=== PATIENT | female | born 1940 | race Caucasian/White ===

== ENCOUNTER 2020-09-04 14:55 | Inpatient (IN) | payer MEDICARE, SELFPAY ==
[2020-09-04] VITALS (12 sets, daily range): BP systolic 124–157; BP diastolic 65–94; PULSE 79–106; RESP 12–24; TEMP 36.6–36.7; O2SAT 92–100; BMI 29.6
--- NOTE | ~2020-09-04 | CT_ITS ---
EXAMINATION: CT brain wo con INDICATION: Confusion and weakness COMPARISON: None TECHNIQUE: Standard unenhanced head CT. The dose-length product (DLP) was 681.00 mGy-cm. The mA was a djusted according to patient size. Iterative reconstruction technique was employed. FINDINGS: There is no acute intraparenchymal hemorrhage. No evidence of mass lesion. No evidence of a cute infarction. Encephalomalacia in the left basal ganglia is consistent with prior infarction. Ther e is mild periventricular and subcortical hypodensity probably related to small vessel ischemic disea se. There is mild prominence of the sulci and ventricles related to cerebral atrophy. Intracranial ca lcified cerebral atherosclerosis is noted. There are no extra-axial collections. There is no mass eff ect or midline shift. Changes in the globes are likely from ocular lens surgery. There is mild mucos al thickening of the paranasal sinuses. IMPRESSION: 1. Prior left basal ganglia infarct without acute intracranial abnormality. 2. Age related findings. Reviewed, dictated and finalized at location A. UET COOK
--- NOTE | ~2020-09-04 | XR_ITS ---
XR chest 1V portable DATE: 09/04/2020 16:39 INDICATION: Covid-positive patient. Weakness. TECHNIQUE: Portable AP chest on 09/04/2020 at 1631 hours COMPARISON: None FINDINGS: There are mild patchy infiltrates in the mid and lower lung zones bilaterally. Heart size appears borderline. There is aortic calcification. Pulmonary vascularity appears within no rmal limits. No pleural effusion or pneumothorax. Diffuse osteopenia. IMPRESSION: Mild patchy infiltrate in the bilateral mid and lower lung zones Reviewed, dictated and finalized at location A. TENDER
[2020-09-04 16:42] LABS: Basophils Percent Auto 0.4 % (0.2-1.2); Eosinophils Absolute Auto 0.2 K/mm3 (0-0.3); Eosinophils Percent Auto 1.6 % (0-4.4); Hematocrit 39.3 % (37.0-47.0); Hemoglobin 13.1 g/dL (12.0-15.0); Immature Granulocyte Absolute 0.28 K/mm3 (0.00-0.031); Immature Granulocyte Percent A 2.6 % (0-0.5); Lymphocytes Absolute Auto 2.04 K/mm3 (0.9-3.2); Lymphocytes Percent Auto 18.7 % (18.3-44.2); Mean Corpuscular HGB Conc 33.3 g/dl (32-36); Mean Corpuscular Hemoglobin 30.5 pg (26-34); Mean Corpuscular Volume 91.4 fl (80-100); Monocytes Absolute Auto 1.2 K/mm3 (0.1-0.6); Monocytes Percent Auto 10.8 % (2.6-8.5); Neutrophils Absolute Auto 7.2 K/mm3 (1.3-6.7); Neutrophils Percent Auto 65.9 % (45.5-73.1); Platelet Count Result 434 k/mm3 (150-375); Red Cell Distribution Width 12.6 % (11.5-14.5); White Blood Count 10.9 K/mm3 (4.5-10.0)
--- NOTE | 2020-09-04 16:50 | ECG_ITS ---
Measurements Intervals [place] Rate: 102 P: 39 CT: 153 QRS: -30 QRSD: 101 T: 138 QT: 374 QTc: 488 Interpretive Statements SINUS TACHYCARDIA VENTRICULAR PREMATURE COMPLEX LOW QRS VOLTAGE IN PRECORDIAL LEADS VOLTAGE CRITERIA FOR LVH CONSIDER ANTEROLATERAL INFARCT, AGE INDETERMINATE BORDERLINE ST-T WAVE ABNORMALITY- HIGH LATERAL LEADS BASELINE ARTIFACT- I, II, III, AVR, AVL, AVF, V1-V6 ABNORMAL ECG Electronically Signed On 09-04-2020 18:12:48 PIECER UP by Dennis Cassidy D.O.
[2020-09-04 16:54] LABS: Alanine Aminotransferase 40 U/L (4-35); Albumin Level 3.5 g/dL (3.5-5.1); Alkaline Phosphatase 81 U/L (38-126); Anion Gap 6 mmol/L (8-16); Aspartate Amino Transferase 111 U/L (14-36); Bilirubin,Total 1.1 mg/dL (0.2-1.3); Blood Urea Nitrogen 25 mg/dL (7-17); Calcium 8.5 mg/dL (8.4-10.2); Carbon Dioxide 32 mmol/L (22-30); Chloride 103 mmol/L (98-107); Estimated CRCL calculation 45 ml/min; Estimated Glomerular Filt Rate 60; Glucose 130 mg/dL (65-105); Lactate Dehydrogenase 1182 U/L (313-618); Lipase 159 U/L (23-300); Potassium 3.7 mmol/L (3.4-5.0); Sodium 141 mmol/L (137-145)
--- NOTE | 2020-09-04 16:54 | ED.GENADULT ---
HPI - General Adult General Chief complaint: Unspecified Stated complaint: COVID + NOT FEELING WELL Time Seen by Provider: 09/04/20 15:13 Source: patient Mode of arrival: EMS Limitations: other (poor historian) History of Present Illness HPI narrative: This is a 79 year old female that presents to the ER for coronavirus infection. Patient's family called EMS to have her evaluated. Patient reportedly tested positive earlier this week. Has been evaluated in the ED at another facility a couple of times and sent home. Patient reports she just does not feel well and does not feel like eating. Also reports shortness of breath upon exertion. Denies fever, cough, abdominal pain, vomiting, or dysuria. Related Data Allergies Allergy/AdvReac Type Severity Reaction Status Date / Time No Known Allergies Allergy Unverified 08/23/12 15:01 Review of Systems Review of Systems: Narrative: CONSTITUTIONAL: Denies fever ENT: Denies congestion CARDIOVASCULAR: Denies chest pain, or edema. RESPIRATORY: Reports dyspnea. GASTROINTESTINAL: Denies abdominal pain, nausea, vomiting GENITOURINARY: Denies dysuria NEUROLOGIC: Reports generalized weakness All systems reviewed & are unremarkable except as noted in HPI and below PMFSH Past Medical History Medical History (Updated 09/04/20 @ 19:44 by Larisa Link PA-C) History of CHF (congestive heart failure) History of diabetes mellitus History of hyperlipidemia Exam Narrative: Exam Narrative: GENERAL: Elderly, well-nourished, and in no acute distress. HEAD: Normocephalic, atraumatic. EYES: EOMI. ENT: Nares clear, no rhinorrhea or epistaxis. Mucous membranes moist. Oropharynx without tonsillar hypertrophy exudate or other lesions. Bilateral TMs pearly watson non-bulging NECK: Supple. No adenopathy or masses. CHEST: Clear to auscultation. No respiratory distress. No wheezes rales or rhonchi HEART: Regular rate and rhythm. No murmur heard. Normal peripheral pulses. ABDOMEN: Soft, nontender, nondistended, normal active bowel sounds. EXTREMITIES: Normal range of motion. No edema. SKIN: Warm, dry, no rash. NEURO: No focal deficits. Alert and oriented x3. PSYCH: Normal mood and affect Course Consultations Consultation #1: Spoke with hospitalist about patient and work-up accepts admission Date: 12/11/20 Time: 19:47 Vital Signs Vital signs: Vital Signs Temperature 97.8 F 09/04/20 15:00 Pulse Rate 105 H 09/04/20 15:00 Respiratory Rate 20 09/04/20 15:00 Blood Pressure 157/94 H 09/04/20 15:00 Pulse Oximetry 96 09/04/20 15:00 Temperature 97.8 F 09/04/20 15:00 Pulse Rate 81 09/04/20 18:34 Respiratory Rate 12 09/04/20 18:34 Blood Pressure 124/81 09/04/20 18:34 Pulse Oximetry 95 09/04/20 18:34 Medical Decision Making MDM Narrative Medical decision making narrative: Patient presents to the ER for generalized weakness, recently diagnosed with coronavirus. Oxygen saturation was in the mid to low 90s on room air. Periodically would dip into the high 80s. Patient placed on 2 L nasal cannula with normalization of oxygen saturation. She is afebrile and nontoxic-appearing. Mildly tachycardic upon arrival, this normalized with IV fluids. CBC with mild leukocytosis to 10.9. Metabolic panel with transaminitis. LDH and ferritin are elevated. Lactic acid is mildly elevated to 2.2. UA is without evidence of infection. Chest x-ray shows patchy bilateral infiltrates in the mid and lower lung zones. CT scan of the brain is without acute findings. Patient will be admitted for further observation and treatment. Spoke with hospitalist about patient work-up who accepts admission Vital Signs Vital Signs: Vital Signs Temperature 97.8 F 09/04/20 15:00 Pulse Rate 105 H 09/04/20 15:00 Respiratory Rate 20 09/04/20 15:00 Blood Pressure 157/94 H 09/04/20 15:00 Pulse Oximetry 96 09/04/20 15:00 Temperature 97.8 F 09/04/20 15:00 Pulse Rate 81 09/04/20 18:34 Resp
[2020-09-04 16:56] LABS: Lactic Acid Reflex 2.2 mmol/L (0.7-2.1)
[2020-09-04 16:58] LABS: CRP 1.1 mg/dL (<1.0)
[2020-09-04] MEDS: ONDANSETRON INJ 4 MG/2 ML VIAL IV PUSH (17:02)
[2020-09-04] MEDS: SODIUM CHLORIDE 0.9% IV 1,000 ML 999 ML IV CONT (17:02)
[2020-09-04 17:23] LABS: Add Urine Microscopic? YES; Appearance Urine Clear (Clear); Bilirubin Urine Negative (Negative); Blood Urine Negative (Negative); Color Urine Yellow (Yellow); Glucose Urine UA Negative (Negative); Ketones Urine Negative (Negative); Leukocyte Esterase Ur Negative LEU/UL (Negative); Nitrate Urine Negative (Negative); Protein Urine 2+ mg/dL (Negative); Specific Grav Ur 1.021 (1.001-1.035); Squamous Epithelial Cell Urine Rare /hpf (Few); Urobilinogen Urine Negative mg/dL (<2.0); WBC Urine 0-3 /hpf
[2020-09-04 17:57] LABS: Alveolar/Arterial O2 Gradient 51.9 mmHg; Base Excess ABG -1.6 mEq/l (+/-2.0); Carboxyhemoglobin 1.2 % THb (0-2.0); Fractional Inspired Oxygen 21 %; HCO3 ABG 22.7 mEq/l (22.0-26.0); Methemoglobin ABG 0.3 %THb (0-1.5); Oxygen Content ABG 14.7 %vol (16.0-22.0); Oxygen Saturation ABG 88.5 % (95.0-100.0); Oxyhemoglobin 84.9 % THb (90.0-100.0); PCO2 ABG 36.7 mmHg (35.0-45.0); PO2 ABG 53.9 mmHg (80.0-100.0); PO2 FiO2 Ratio Arterial Blood 2.57 %; Reduced Hemoglobin 13.6 %THb (0-5.0); Total Hemoglobin 12.3 g/dL (12.0-18.0); pH ABG 7.409 (7.350-7.450)
[2020-09-04 17:58] LABS: Device ROOM AIR; Modified Allen's Test Pass; Site Drawn RIGHT RADIAL
--- NOTE | 2020-09-04 18:05 | PC.NURSE ---
Patient placed on 2L oxygen per EDP request
[2020-09-04] MEDS: DEXAMETHASONE SOD PHOS INJ 4 MG/ML VIAL 6 MG IV PUSH (18:18)
[2020-09-04 19:38] LABS: Reflex Lactic Acid Yes or No Add Lactic
[2020-09-04 20:12] LABS: Lactic Acid 1.1 mmol/L (0.7-2.1)
[2020-09-04] MEDS: REMDESIVIR 200 MG/NS 250 ML 200 MG/250 ML BAG 250 MG IVPB (20:18)
--- NOTE | 2020-09-04 22:01 | ADMGEN ---
This patient, Kylah Peña, was admitted to [facility] S[facility] Room 309-01 at 1205. Patient/family oriented to hospital policies and general routines including ID bracelet, bed and alarms, visiting hours, pain management, procedures, bathroom and other care routines, personal items, smoking policy, room service/diet, and visiting hours. Information on how to activate the Rapid Response Team has been discussed. Patient/Family are encouraged to report perceived risks to care and to ask questions if they do not understand what they are told or what they should do.
[2020-09-04 23:04] LABS: Glucose Point of Care 190 (65-105)
[2020-09-05] VITALS (8 sets, daily range): BP systolic 123–150; BP diastolic 58–81; PULSE 70–87; RESP 18; TEMP 36.3–37.3; O2SAT 91–100
[2020-09-05 07:25] LABS: Alanine Aminotransferase 45 U/L (4-35)
--- NOTE | 2020-09-05 07:49 | PC.NURSE ---
Atempted to call number patient gave nurse for daughter and son [phone]. chadian speaking recording answered.
[2020-09-05 08:44] LABS: Glucose Point of Care 180 (65-105)
[2020-09-05 10:37] LABS: Estimated CRCL calculation 55 ml/min; Estimated Glomerular Filt Rate > 60
[2020-09-05] MEDS: DEXAMETHASONE SOD PHOS INJ 4 MG/ML VIAL 6 MG IV PUSH (11:21)
[2020-09-05 12:34] LABS: Glucose Point of Care 156 (65-105)
--- NOTE | 2020-09-05 14:40 | PM.IMHP ---
H&P: HPI History of Present Illness Date/Time: 09/05/20 14:40 Chief complaint: COVID pneumonia, hypoxia Narrative: Kylah Peña is a 79 year old female with a past medical history of heart failure, diabetes and hypertension and a positive COVID-19 test about a week ago who presented emergency room for overall weakness and dyspnea on exertion. Patient states her symptoms started over a week ago and she was tested at [facility] and found to be positive about a week ago. She said the symptoms started as a stomach ache and then moved to body aches as well as dyspnea on exertion. She does not have any shortness of breath at rest. She has also noticed a headache with decreased appetite. She has been weak but has not fallen and usually walks with a walker. She lives with her 2 children at her own home. She says that today her appetite is better than it has been. She is unsure where she got COVID-19 as she lives with her daughter and son who does all the shopping and she has not been out of the house. Her last bowel movement was 2 days ago. She denies fevers, cough, loss of smell or taste, diarrhea, chest pain, vomiting, dysuria or leg swelling. She states that she is aware she has had a stroke in the past and also had an UT with stenting. She does not know why she does not take aspirin daily. Review of Systems Review of Systems: All systems reviewed & are unremarkable except as noted in HPI and below PMFSH Past Medical History Medical History (Updated 09/05/20 @ 14:48 by Beth Bautista PA-C) History of CHF (congestive heart failure) History of diabetes mellitus History of hyperlipidemia Hypertension Surgical History Surgical History (Updated 09/05/20 @ 14:45 by Beth Bautista PA-C) History of heart artery stent Family History Family History Mother Congestive heart failure Father Congestive heart failure Sibling Congestive heart failure Emphysema lung Breast cancer Social History Social History (Updated 09/05/20 @ 14:46 by Beth Bautista PA-C) Social History: Patient has never smoked. She does not drink alcohol or do drugs. She would like to be a full code. If she is unable to make decisions for herself she would like her son, Franco, to make these decisions. Smoking status: Never smoker Alcohol intake: never Substance use: never Spiritual care concerns: Yes (pentacostal) Meds Home Medications and Allergies Home Medications Medication Instructions Recorded Confirmed Type furosemide 40 mg PO DAILY 09/04/20 09/04/20 History glimepiride 4 mg PO BID 09/04/20 09/04/20 History insulin glargine [Lantus Solostar 15 unit SUBCUT HS 09/04/20 09/04/20 History U-100 Insulin] metoprolol tartrate 25 mg PO BID 09/04/20 09/04/20 History nifedipine 30 mg PO BID 09/04/20 09/04/20 History potassium chloride 10 meq PO BID 09/04/20 09/04/20 History quetiapine 25 mg PO HS 09/04/20 09/04/20 History sacubitril-valsartan [Entresto] 1 tablet PO BID 09/04/20 09/04/20 History simvastatin [Zocor] 40 mg PO HS 09/04/20 09/04/20 History Allergies Allergy/AdvReac Type Severity Reaction Status Date / Time No Known Allergies Allergy Verified 09/05/20 05:16 Vital Signs Vital Signs - 24 hr 09/04/20 15:00 09/04/20 16:11 09/04/20 16:27 Temperature 97.8 F Pulse Rate 105 H 106 H 102 H Respiratory Rate 20 24 H Blood Pressure 157/94 H 156/88 H Pulse Oximetry 96 96 09/04/20 18:34 09/04/20 19:00 09/04/20 19:02 Temperature Pulse Rate 81 89 93 Respiratory Rate 12 15 18 Blood Pressure 124/81 140/71 Pulse Oximetry 95 99 100 09/04/20 19:15 09/04/20 19:57 09/04/20 20:21 Temperature Pulse Rate 103 H 85 85 Respiratory Rate 18 17 16 Blood Pressure 150/74 H Pulse Oximetry 92 100 96 09/04/20 20:22 09/04/20 21:00 09/04/20 21:05 Temperature 98.1 F Pulse Rate 87 79 79 Respiratory Rate 18 18 18 Blood Pressure 144/6
[2020-09-05] MEDS: POTASSIUM CHLORIDE 10 MEQ TABLET.ER PO ×2 (14:57→18:01)
[2020-09-05] MEDS: ASPIRIN 81 MG ENTERIC TABLET PO (14:57)
[2020-09-05] MEDS: SACUBITRIL/VALSARTAN 49-51 MG TABLET 1 TABLET PO ×2 (14:57→18:01)
[2020-09-05] MEDS: NIFEdipine 30 MG TAB.ER.24 PO (14:57)
[2020-09-05] MEDS: METOPROLOL TARTRATE 25 MG TABLET PO ×2 (14:57→20:00)
[2020-09-05] MEDS: ENOXAPARIN 40 MG/0.4 ML SYRINGE SUB-Q ×2 (14:57→20:01)
[2020-09-05 17:24] LABS: Glucose Point of Care 295 (65-105)
[2020-09-05] MEDS: QUEtiapine FUMARATE 25 MG TABLET PO (20:00)
[2020-09-05 20:59] LABS: Glucose Point of Care 314 (65-105)
[2020-09-06] VITALS (7 sets, daily range): BP systolic 123–142; BP diastolic 52–66; PULSE 72–82; RESP 16–20; TEMP 36.1–36.7; O2SAT 91–95
[2020-09-06 06:38] LABS: Basophils Percent Auto 0.1 % (0.2-1.2); Hematocrit 37.5 % (37.0-47.0); Hemoglobin 12.4 g/dL (12.0-15.0); Immature Granulocyte Absolute 0.11 K/mm3 (0.00-0.031); Immature Granulocyte Percent A 0.9 % (0-0.5); Lymphocytes Absolute Auto 0.89 K/mm3 (0.9-3.2); Lymphocytes Percent Auto 7.5 % (18.3-44.2); Mean Corpuscular HGB Conc 33.1 g/dl (32-36); Mean Corpuscular Hemoglobin 30.1 pg (26-34); Mean Platelet Volume 10.3 fl (7.4-10.4); Monocytes Absolute Auto 0.8 K/mm3 (0.1-0.6); Monocytes Percent Auto 6.9 % (2.6-8.5); Neutrophils Percent Auto 84.6 % (45.5-73.1); Platelet Count Result 400 k/mm3 (150-375); Red Blood Count 4.12 M/mm3 (4.2-5.4); Red Cell Distribution Width 12.6 % (11.5-14.5); White Blood Count 11.8 K/mm3 (4.5-10.0)
[2020-09-06 06:58] LABS: Alanine Aminotransferase 36 U/L (4-35)
[2020-09-06 07:00] LABS: Alanine Aminotransferase 37 U/L (4-35); Alkaline Phosphatase 89 U/L (38-126); Anion Gap 7 mmol/L (8-16); Aspartate Amino Transferase 87 U/L (14-36); Bilirubin,Total 0.8 mg/dL (0.2-1.3); Blood Urea Nitrogen 33 mg/dL (7-17); Calcium 8.4 mg/dL (8.4-10.2); Carbon Dioxide 28 mmol/L (22-30); Chloride 102 mmol/L (98-107); Estimated CRCL calculation 48 ml/min; Estimated Glomerular Filt Rate > 60; Glucose 314 mg/dL (65-105); Magnesium 2.2 mg/dL (1.6-2.3); Phosphorus 3.4 mg/dL (2.5-4.5); Potassium 4.2 mmol/L (3.4-5.0); Sodium 137 mmol/L (137-145)
[2020-09-06 07:56] LABS: Thyroid Stimulating Hormone Reflex 0.617 uIU/mL (0.465-4.68)
[2020-09-06 08:32] LABS: Glucose Point of Care 308 (65-105)
[2020-09-06 09:07] LABS: Estimated CRCL calculation 55 ml/min; Estimated Glomerular Filt Rate > 60
[2020-09-06] MEDS: INSULIN ASPART (*BKC) 100 UNITS/ML SUB-Q ×2 (10:26→15:35)
[2020-09-06] MEDS: ASPIRIN 81 MG ENTERIC TABLET PO (10:27)
[2020-09-06] MEDS: DEXAMETHASONE SOD PHOS INJ 4 MG/ML VIAL 6 MG IV PUSH (10:28)
[2020-09-06] MEDS: ENOXAPARIN 40 MG/0.4 ML SYRINGE SUB-Q ×2 (10:28→21:28)
[2020-09-06] MEDS: POTASSIUM CHLORIDE 10 MEQ TABLET.ER PO ×2 (10:29→15:34)
[2020-09-06] MEDS: METOPROLOL TARTRATE 25 MG TABLET PO ×2 (10:29→21:29)
[2020-09-06] MEDS: NIFEdipine 30 MG TAB.ER.24 PO (10:29)
[2020-09-06] MEDS: SACUBITRIL/VALSARTAN 49-51 MG TABLET 1 TABLET PO ×2 (10:30→15:34)
[2020-09-06 12:25] LABS: Glucose Point of Care 379 (65-105)
--- NOTE | 2020-09-06 16:16 | PM.IMPN ---
Progress Note: A&P Assessment and Plan (1) Pneumonia due to 2019 novel coronavirus: Code(s): U07.1 - COVID-19; J12.89 - Other viral pneumonia Status: Acute Assessment and Plan: Patient tested positive at the outside facility over week ago but is unable to provide us with an accurate date -she was initially slightly hypoxic and started on O2. She has now been weaned off -she was started on Remdesivir and Decadron on admission. Remdesivir and Decadron has been stopped -no home oxygen evaluation if she is going to SNF especially since she has not required any oxygen since yesterday -continue PT and OT for weakness (2) Acute respiratory failure with hypoxia: Code(s): J96.01 - Acute respiratory failure with hypoxia Status: Acute Assessment and Plan: Likely due to COVID-19 and now resolved -no signs of DVT or PE on exam. PE seems less likely. Will continue Lovenox for DVT prevention -oxygen has now been weaned off (3) Transaminitis: Code(s): R74.01 - Elevation of levels of liver transaminase levels Status: Acute Assessment and Plan: Liver enzymes elevated on admission -likely due to viral illness -if the continue to worsen, may consider hepatitis testing or ultrasound (4) Type 2 diabetes mellitus: Code(s): E11.9 - Type 2 diabetes mellitus without complications Status: Acute Assessment and Plan: Last [id number] -this has worsened due to increased appetite and steroids -Lantus and glimepiride (at a lower dose) was started -sliding scale insulin increased -will stop Decadron since the patient is on room air (5) Hypertension: Code(s): I10 - Essential (primary) hypertension Status: Acute Assessment and Plan: Last blood pressure 135/63 -continue metoprolol, Procardia, and Entresto (6) History of CHF (congestive heart failure): Code(s): Z86.79 - Personal history of other diseases of the circulatory system Status: Inactive Assessment and Plan: Patient appears euvolemic -continue aspirin, she will need this discharge (7) Generalized weakness: Code(s): R53.1 - Weakness Status: Acute Assessment and Plan: Due to COVID-19 -PT and OT will work with her while she is here -will likely benefit from home health or SNF -she lives at home with her 2 children walks with a walker Time Spent With Patient Time with patient: 25 - 35 minutes Subjective Date/time seen: 09/06/20 16:16 Interval history: Pt is a 39-year-old female here for COVID. Patient states she is doing better and feels stronger although she still feels weak. She is worried about going home and does not know she feels safe. Her children live with her but she thinks she would benefit from therapy before going home. Today she does not feel short of breath. Her appetite has improved. She denies dyspnea on exertion, chest pain, nausea, vomiting, fevers, chills, or leg swelling. Review of Systems Review of Systems: All systems reviewed & are unremarkable except as noted in HPI and below Exam Narrative: Exam Narrative: General:Well developed well nourished patient HEENT: Normocephalic, atraumatic, PERRL, Sclerae anicteric, oral mucosa moist. Neck: Supple Resp: CTA Heart: Regular rate and rhythm with a slight 1/6 systolic murmur Abd: Soft, nontender. No pain to palpation. Positive bowel sounds Skin: Warm and dry Extremities: No swelling, erythema or pain to palpation Neuro: Alert and Oriented x4 . CN 2-12 intact. No focal neurological deficits. Objective Data Vital Signs Vital Signs: Vital Signs - 24 hr 09/05/20 20:00 09/05/20 21:21 09/06/20 00:00 Temperature 98.4 F 97.4 F L Pulse Rate 87 85 72 Respiratory Rate 18 18 Blood Pressure 123/58 L 140/66 Pulse Oximetry 94 94 91 09/06/20 04:44 09/06/20 08:00 09/06/20 12:00 Temperature 97.5 F L 97.9 F 98.0 F Pulse Rate 79 82 82 Respiratory Ra
[2020-09-06] MEDS: INSULIN ASPART (*BKC) 100 UNITS/ML 14 UNITS SUB-Q (18:10)
[2020-09-06 18:20] LABS: Glucose Point of Care 405 (65-105)
[2020-09-06] MEDS: INSULIN GLARGINE (*BKC) 100 UNITS/ML 10 UNITS SUB-Q (21:28)
[2020-09-06] MEDS: QUEtiapine FUMARATE 25 MG TABLET PO (21:29)
[2020-09-06 21:59] LABS: Glucose Point of Care 419 (65-105)
[2020-09-07] VITALS (8 sets, daily range): BP systolic 109–140; BP diastolic 50–64; PULSE 66–87; RESP 16–20; TEMP 35.8–36.5; O2SAT 92–100
[2020-09-07 06:14] LABS: Hematocrit 36.7 % (37.0-47.0); Hemoglobin 12.1 g/dL (12.0-15.0); Mean Corpuscular Hemoglobin 30.5 pg (26-34); Mean Corpuscular Volume 92.4 fl (80-100); Mean Platelet Volume 10.3 fl (7.4-10.4); Platelet Count Result 368 k/mm3 (150-375); Red Blood Count 3.97 M/mm3 (4.2-5.4); Red Cell Distribution Width 12.7 % (11.5-14.5); White Blood Count 9.3 K/mm3 (4.5-10.0)
[2020-09-07 06:29] LABS: Alanine Aminotransferase 28 U/L (4-35); Albumin Level 2.9 g/dL (3.5-5.1); Alkaline Phosphatase 137 U/L (38-126); Anion Gap 1 mmol/L (8-16); Aspartate Amino Transferase 45 U/L (14-36); Bilirubin,Total 0.8 mg/dL (0.2-1.3); Blood Urea Nitrogen 36 mg/dL (7-17); Calcium 8.7 mg/dL (8.4-10.2); Carbon Dioxide 31 mmol/L (22-30); Chloride 103 mmol/L (98-107); Estimated CRCL calculation 48 ml/min; Estimated Glomerular Filt Rate > 60; Glucose 334 mg/dL (65-105); Potassium 4.6 mmol/L (3.4-5.0); Sodium 135 mmol/L (137-145)
[2020-09-07 08:56] LABS: Glucose Point of Care 311 (65-105)
[2020-09-07 08:59] LABS: Hemoglobin A1C 8.5 % (<5.7)
[2020-09-07] MEDS: ASPIRIN 81 MG ENTERIC TABLET PO (10:44)
[2020-09-07] MEDS: INSULIN ASPART (*BKC) 100 UNITS/ML SUB-Q ×3 (10:44→17:55)
[2020-09-07] MEDS: GLIMEPIRIDE 2 MG TABLET 4 MG PO (10:44)
[2020-09-07] MEDS: ENOXAPARIN 40 MG/0.4 ML SYRINGE SUB-Q ×2 (10:45→22:10)
[2020-09-07] MEDS: POTASSIUM CHLORIDE 10 MEQ TABLET.ER PO ×2 (10:45→17:56)
[2020-09-07] MEDS: METOPROLOL TARTRATE 25 MG TABLET PO ×2 (10:45→22:09)
[2020-09-07] MEDS: SACUBITRIL/VALSARTAN 49-51 MG TABLET 1 TABLET PO ×2 (10:45→17:56)
[2020-09-07] MEDS: NIFEdipine 30 MG TAB.ER.24 PO (10:45)
[2020-09-07 13:21] LABS: Glucose Point of Care 305 (65-105)
--- NOTE | 2020-09-07 14:43 | PM.IMPN ---
Progress Note: A&P Assessment and Plan (1) Pneumonia due to 2019 novel coronavirus: Code(s): U07.1 - COVID-19; J12.89 - Other viral pneumonia Status: Acute Assessment and Plan: Patient tested positive at the outside facility over week ago but is unable to provide us with an accurate date -she was initially slightly hypoxic and started on O2. She has now been weaned off -she was started on Remdesivir and Decadron on admission. Remdesivir and Decadron has been stopped since she has been on room air -no home oxygen evaluation if she is going to SNF especially since she has not required any oxygen for 2 days -continue PT and OT for weakness -likely discharge tomorrow (2) Acute respiratory failure with hypoxia: Code(s): J96.01 - Acute respiratory failure with hypoxia Status: Acute Assessment and Plan: Likely due to COVID-19 and now resolved -no signs of DVT or PE on exam. PE seems less likely. Will continue Lovenox for DVT prevention -oxygen has now been weaned off (3) Transaminitis: Code(s): R74.01 - Elevation of levels of liver transaminase levels Status: Acute Assessment and Plan: Liver enzymes elevated on admission and continues to improve -likely due to viral illness (4) Type 2 diabetes mellitus: Code(s): E11.9 - Type 2 diabetes mellitus without complications Status: Acute Assessment and Plan: Last glucose 305 -this has worsened due to increased appetite and steroids -Lantus started 09/06 -home dose of Amaryl started 09/07 -sliding scale insulin increased -Decadron stopped -A1c 8.5 (5) Hypertension: Code(s): I10 - Essential (primary) hypertension Status: Acute Assessment and Plan: Last blood pressure 121/62 -continue metoprolol, Procardia, and Entresto (6) History of CHF (congestive heart failure): Code(s): Z86.79 - Personal history of other diseases of the circulatory system Status: Inactive Assessment and Plan: Patient appears euvolemic -continue aspirin, she will need this discharge -she has a history of stroke on CT, discharged on aspirin (7) Generalized weakness: Code(s): R53.1 - Weakness Status: Acute Assessment and Plan: Due to COVID-19 -PT and OT will work with her while she is here -will likely go to [facility] tomorrow Subjective Date/time seen: 09/07/20 14:43 Interval history: Pt is a 39-year-old female here for COVID. Patient was seen today sitting up in a chair. She does not like sitting in the chair because it hurts her bottom. She feels very weak and wants to go back to bed. She says she feels lousy but cannot actually tell me why. She denies chest pain, shortness of breath, fever, chills, nausea, vomiting, abdominal pain, cough, or leg swelling Exam Narrative: Exam Narrative: General:Well developed well nourished patient HEENT: Normocephalic, atraumatic, PERRL, Sclerae anicteric, oral mucosa moist. Neck: Supple Resp: CTA Heart: Regular rate and rhythm with a slight 1/6 systolic murmur Abd: Soft, nontender. No pain to palpation. Positive bowel sounds Skin: Warm and dry Extremities: No swelling, erythema or pain to palpation Neuro: Alert and Oriented x4 . CN 2-12 intact. No focal neurological deficits. Objective Data Vital Signs Vital Signs: Vital Signs - 24 hr 09/06/20 16:00 09/06/20 20:00 09/06/20 21:29 Temperature 97.5 F L 97.0 F L Pulse Rate 77 74 72 Respiratory Rate 18 16 Blood Pressure 142/65 H 123/52 L Pulse Oximetry 91 94 09/07/20 00:00 09/07/20 04:00 09/07/20 08:00 Temperature 97.7 F 97.4 F L 97.2 F L Pulse Rate 73 78 82 Respiratory Rate 16 16 16 Blood Pressure 109/50 L 122/57 L 125/60 Pulse Oximetry 96 92 95 09/07/20 12:00 Temperature 97.0 F L Pulse Rate 66 Respiratory Rate 16 Blood Pressure 121/62 Pulse Oximetry 100 Intake/Output Intake/Output: Intake & Output
[2020-09-07 17:41] LABS: Glucose Point of Care 292 (65-105)
[2020-09-07] MEDS: QUEtiapine FUMARATE 25 MG TABLET PO (22:10)
[2020-09-07] MEDS: INSULIN GLARGINE (*BKC) 100 UNITS/ML 10 UNITS SUB-Q (22:10)
[2020-09-07 22:44] LABS: Glucose Point of Care 342 (65-105)
[2020-09-08] VITALS (7 sets, daily range): BP systolic 101–140; BP diastolic 59–77; PULSE 73–92; RESP 16–18; TEMP 35.9–36.7; O2SAT 94–98
[2020-09-08 07:02] LABS: Alanine Aminotransferase 29 U/L (4-35)
[2020-09-08 08:20] LABS: Glucose Point of Care 231 (65-105)
[2020-09-08] MEDS: INSULIN ASPART (*BKC) 100 UNITS/ML SUB-Q (09:35)
[2020-09-08] MEDS: POTASSIUM CHLORIDE 10 MEQ TABLET.ER PO ×2 (09:36→18:00)
[2020-09-08] MEDS: ENOXAPARIN 40 MG/0.4 ML SYRINGE SUB-Q ×2 (09:37→21:03)
[2020-09-08] MEDS: ASPIRIN 81 MG ENTERIC TABLET PO (09:37)
[2020-09-08] MEDS: GLIMEPIRIDE 2 MG TABLET 4 MG PO (09:37)
[2020-09-08] MEDS: METOPROLOL TARTRATE 25 MG TABLET PO ×2 (09:38→21:03)
[2020-09-08] MEDS: SACUBITRIL/VALSARTAN 49-51 MG TABLET 1 TABLET PO ×2 (09:38→18:00)
[2020-09-08] MEDS: NIFEdipine 30 MG TAB.ER.24 PO (09:38)
[2020-09-08 12:34] LABS: Glucose Point of Care 176 (65-105)
--- NOTE | 2020-09-08 13:32 | PM.DS ---
DS: Admitting Diagnosis Admitting Diagnosis Admitting Diagnosis: Acute respiratory failure DS: Discharge Diagnosis Discharge Diagnosis (1) Pneumonia due to 2019 novel coronavirus: Code(s): U07.1 - COVID-19; J12.89 - Other viral pneumonia Status: Acute Assessment and Plan: Date of Admission 09/04/20 Date of Discharge/DOS 09/08/20 Ms. Peña is a 79yo F with history of type 2 diabetes mellitus and CHF who presented to the ED known COVID + over 1 week ago previously treated at [facility], for evaluation of weakness and shortness of breath. Chest XR demonstrated mild patchy bilateral infiltrates. She was initially hypoxic requiring up to 2L/min of supplemental O2 and was started on dexamethasone and remdesivir. She received 3 doses of dexamethasone and 1 dose of remdesivir which was discontinued as she was no longer hypoxic and tolerating room air with adequate oxygen saturations. She worked with PT/OT and was felt to be a good candidate to continue therapy at rehab. Old CVA noted on imaging and she was started on aspirin. She was hemodynamically stable for discharge on 09/08/20 to rehab at [facility]. Patient tested positive at the outside facility over week ago but is unable to provide us with an accurate date -she was initially slightly hypoxic and started on O2. She has now been weaned off -she was started on Remdesivir and Decadron on admission. Off oxygen with good O2 sats for 3 days prior to discharge. -continue PT and OT for weakness (2) Acute respiratory failure with hypoxia: Code(s): J96.01 - Acute respiratory failure with hypoxia Status: Resolved Assessment and Plan: Likely due to COVID-19 and now resolved (3) Transaminitis: Code(s): R74.01 - Elevation of levels of liver transaminase levels Status: Acute Assessment and Plan: Liver enzymes elevated on admission and continues to improve -likely due to viral illness (4) Type 2 diabetes mellitus: Code(s): E11.9 - Type 2 diabetes mellitus without complications Status: Chronic Assessment and Plan: WIth hyperglycemia suspect due to increased appetite and steroids -Lantus started 09/06 -home dose of Amaryl started 09/07 -sliding scale insulin increased -Decadron stopped -A1c 8.5; monitor accu-cheks at rehab. (5) Hypertension: Code(s): I10 - Essential (primary) hypertension Status: Chronic Assessment and Plan: Stable maintained on home metoprolol, Procardia, and Entresto (6) History of CHF (congestive heart failure): Code(s): Z86.79 - Personal history of other diseases of the circulatory system Status: Inactive Assessment and Plan: Patient appears euvolemic. She has a history of stroke on CT, discharged on aspirin (7) Generalized weakness: Code(s): R53.1 - Weakness Status: Acute Assessment and Plan: Due to COVID-19; Continue PT/OT at rehab DS: Summary Hospital Course Hospital Course: See above. Time Spent with Patient Time attestation: Total time spent providing and/or coordinating discharge services: 45 minutes Exam Narrative: Exam Narrative: General:Well developed well nourished female resting supine in bed in no acute distress. HEENT: Normocephalic, atraumatic, PERRL, Sclerae anicteric, oral mucosa moist. Neck: Supple Resp: Clear to auscultation Heart: Regular rate and rhythm with a soft systolic murmur Abd: Soft, nontender. No pain to palpation. Positive bowel sounds Skin: Warm and dry Extremities: No swelling, erythema or pain to palpation Neuro: Alert and Oriented x4 . CN 2-12 intact. No fo
[2020-09-08 17:18] LABS: Glucose Point of Care 118 (65-105)
[2020-09-08] MEDS: QUEtiapine FUMARATE 25 MG TABLET PO (21:03)
[2020-09-08 22:34] LABS: Glucose Point of Care 127 (65-105)
== END 2020-09-08 23:10 | disposition swing bed (61) | DRG 177 ==
LOC: ANHED 19:44 → ANH3MEDSUR 20:14
PROVIDERS: Physician Assistant; Admitting Provider Internal Medicine; Emergency Provider Emergency Medicine; PCP Internal Medicine; Visit Provider Physician Assistant
DX: U07.1 COVID-19 (principal); J12.89 Other viral pneumonia; J96.01 Acute respiratory failure with hypoxia; I11.0 Hypertensive heart disease with heart failure; I50.9 Heart failure, unspecified; E11.65 Type 2 diabetes mellitus with hyperglycemia; R74.01 Elevation of levels of liver transaminase levels; R53.1 Weakness; Z79.4 Long term (current) use of insulin; Z79.899 Other long term (current) drug therapy; Z86.73 Personal history of transient ischemic attack (TIA), and cerebral infarction without residual deficits
CPT/HCPCS: 36415; 36600; 51701; 70450; 71045; 80048; 80053; 80076; 81001; 82375; 82565; 82728; 82805; 83036; 83050; 83605; 83615; 83690; 83735; 84100; 84443; 84460; 85025; 85027; 86140; 93005; 96361; 96374; 96375; 97110; 97162; 97165; 97530; 99285; A9270; G0378; J0131; J1100; J1650; J1815; J2405; J7030

== ENCOUNTER 2020-09-08 23:38 | Inpatient (IN) | payer MEDICARE, SELFPAY ==
[2020-09-09] VITALS (7 sets, daily range): BP systolic 118–156; BP diastolic 60–76; PULSE 80–91; RESP 16–20; TEMP 36.1–36.6; O2SAT 92–96; BMI 29.8
--- OUTSIDE RECORDS SUMMARY | 2020-09-09 00:12 | XMS_ITS ---
:1940 External Reference #:[id number] Author Care Team Providers Name Role Phone DR. MALCOM SILVA Primary Care Provider [phone] Allergies Code Code System Name Reaction Severity Status Onset NKDA ? Medications Name Status Start Date Stop Date ? ? ammonium lactate 12 % lotion Active ? Not available Apply to both feet daily as needed-do not apply in between toes atorvastatin 20 mg tablet Active ? Not av ailable BD Ultra-Fine Jes Pen Needle 32 gauge x Active ? Not available USE 1 PEN NEEDLE ONCE DAILY AT BEDTIME Contour Test Strips Active ? Not availabl e USE 1 STRIP TO CHECK GLUCOSE THREE TIMES DAILY Entresto 49 mg-51 mg tablet Active ? Not available furosemide 20 mg tablet Completed ? 11/30/19 19 furosemide 40 mg tablet Active ? Not avai lable glimepiride 4 mg tablet Active ? Not avai lable ketorolac 0.4 % eye drops Active ? Not av ailable Lantus Solostar U-100 Insulin 100 Active ? Not available unit/mL (3 mL) subcutaneous pen losartan 25 mg tablet Active ? Not availa ble losartan 50 mg tablet Active ? Not availa ble metolazone 2.5 mg tablet Active ? Not chan ilable metoprolol tartrate 25 mg tablet Active ? Not available polymyxin B sulfate 10,000 Active ? Not a vailable unit-trimethoprim 1 mg/mL eye drops prednisolone acetate 1 % eye Active ? Not available drops,suspension simvastatin 40 mg tablet Active ? Not chan ilable Vitamin D2 1,250 mcg (50,000 unit) capsule Active ? Not available TAKE 1 CAPSULE BY MOUTH ONCE A WEEK
--- OUTSIDE RECORDS SUMMARY | 2020-09-09 00:12 | XMS_ITS | Encounter Summary ---
:1940 Author Care Team Providers Name Role Phone Dr. Scar Motley Primary Care Provider [phone] Reason for Visit diabetic foot care Assessment and Plan 1. Diabetes mellitus Reinforced proper diabetic cesar t care including checking feet daily, no barefoot walking, maintain tight glycemic control, lotion to feet daily-not web spaces. Watch for signs of skin breakdown including callus formation or any type of blister wound and notify the office immediately. Discussion Note: None recorded.Patient educational handouts: No information available. Plan of Care Reminders Provider Appointments Follow up 09/28/2020 Ben Sandoval, 2:00PM DPM Lab None ? ? recorded. Referral None ? ? recorded. Procedures None ? ? recorded. Surgeries None ? ? recorded. Imaging None ? ? recorded. Medications Name Start Date ? ? ammonium lactate 12 % lotion ? Apply to both feet daily as needed-do not apply in be tween toes atorvastatin 20 mg tablet ? BD Ultra-Fine Jes Pen Needle 32 gauge x ? USE 1 PEN NEEDLE ONCE DAILY AT BEDTIME Contour Test Strips ? USE 1 STRIP TO CHECK GLUCOSE THREE TIMES DAILY Entresto 49 mg-51 mg tablet ? furosemide 40 mg tablet ? glimepiride 4 mg tablet ? ketorolac 0.4 % eye drops ? Sabina Westbrook
--- OUTSIDE RECORDS SUMMARY | 2020-09-09 00:13 | XMS_ITS | Encounter Summary ---
:1940 Author Care Team Providers Name Role Phone Dr. Scar Motley Primary Care Provider [phone] Ralf Starr MD OTHER [phone] Ben Sandoval OTHER [phone] Reason for Visit physical Assessment and Plan 1. Congestive heart failure 2. Essential hypertension 3. Pure hypercholesterolemia ? lipid panel, serum ? CMP, serum or plasma 4. Type 2 diabetes mellitus ? HbA1c (hemoglobin A1c), bl ood ? microalbumin, urine Discussion Note CAD HTN Cholesterol DM Check blood work. Follow up in four months. Continue on current Rx. Patient educational handouts: No information available. Plan of Care Reminders Provider Appointments Return to on or around [facility] ar[facility] Motley, Office 12/11/2020 Lab Lipid 08/14/2020 [facility] Panel, Serum [facility] ? CMP, 08/14/2020 [facility] Serum or Plasma [facility] ? HbA1C 08/14/2020 [facility] (Hemoglobin a1C), [facility] Blood ? 08/14/2020 [facility] Microalbumin, Urine [facility] Referral None ? ? recorded. Procedures None ? ? recorded. Surgeries None ?
--- OUTSIDE RECORDS SUMMARY | 2020-09-09 00:13 | XMS_ITS | Encounter Summary ---
:1940 Author Care Team Providers Name Role Phone Dr. Scar Motley Primary Care Provider [phone] Ralf Starr MD OTHER [phone] Ben Sandoval OTHER [phone] Reason for Visit Other Assessment and Plan 1. Congestive heart failure 2. Coronary arteriosclerosis 3. Essential hypertension 4. Pure hypercholesterolemia 5. Type 2 diabetes mellitus Discussion Note CAD CHF HTN Cholesterol DM Will set up with PT and OT to try to improve on balance and ambulatory functions. Marielena ck back in four weeks Patient educational handouts: No information available. Plan of Care Reminders Provider Appointments Return to on or around [facility] Motley, Office 12/11/2020 Lab None ? ? recorded. Referral None ? ? recorded. Procedures None ? ? recorded. Surgeries None ? ? recorded. Imaging None ? ? recorded. Medications Name Start Date ? ? atorvastatin 20 mg tablet ? Take 1 tablet every day by oral route. BD Ultra-Fine Jes Pen Needle 32 gauge x ? USE 1 PEN NEEDLE ONCE DAILY AT BEDTIME Contour Test Strips ? USE ONE STRIP TO CHECK GLUCOSE THREE TIMES DAILY furosemide 40 mg tablet ? Take 1 ta
--- OUTSIDE RECORDS SUMMARY | 2020-09-09 00:13 | XMS_ITS ---
:1940 External Reference #:[id number] Author Care Team Providers Name Role Phone DR. MALCOM SILVA Primary Care Provider [phone] KATHLEEN HUDSON MD OTHER [phone] HOPE HERRERA OTHER [phone] Allergies Code Code System Name Reaction Severity Status Onset 24973 RxNorm Accupril Cough ? Active ? 667086 RxNorm Diovan Vomiting ? Active ? Notes: Some allergies listed in Document: #[id number] could not be added to this patient's chart. Please review this document and add these allergies to the patient's chart manually as needed. Medications Name Status Start Date Stop Date ? ? Amaryl 2 mg tablet Completed ? 11/03/2017 Take 1 tablet twice a day by oral route. amoxicillin 500 mg capsule Completed ? 07/07 Take 1 capsule 3 times a day by oral route for 10 days. aspirin 81 mg tablet,delayed release Unknown ? Not available Take 1 tablet every day by oral route. atorvastatin 20 mg tablet Active ? Not av ailable Take 1 tablet every day by oral route. BD Ultra-Fine Jes Pen Needle 32 gauge x 5/32 Active ? Not available USE 1 PEN NEEDLE ONCE DAILY AT BEDTIME ciprofloxacin 500 mg tablet Unknown ? Not available Contour Test Strips Active ? Not availabl e USE ONE STRIP TO CHECK GLUCOSE THREE TIMES DAILY Coreg 6.25 mg tablet Unknown ? Not availab le Take 1 tablet twice a day by oral route. Cozaar 25 mg tablet Completed ? 04/14/2020 Take 1 tablet every day by oral route. Entresto Completed ? 04/14/2020 furosemide 20 mg tablet Completed ?
--- NOTE | 2020-09-09 01:07 | ADMGEN ---
This patient, Kylah Peña, was admitted to 2nd Floor Room 208-2. Patient/family oriented to hospital policies and general routines including ID bracelet, bed and alarms, visiting hours, pain management, procedures, bathroom and other care routines, personal items, smoking policy, room service/diet, and visiting hours. Information on how to activate the Rapid Response Team has been discussed. Patient/Family are encouraged to report perceived risks to care and to ask questions if they do not understand what they are told or what they should do.
--- NOTE | 2020-09-09 05:07 | PC.NURSE ---
Patient sleeping quietly in bed. No distress noted. Breathing even and unlabored. Call light and belongings at side.
--- OUTSIDE RECORDS SUMMARY | 2020-09-09 07:22 | XMS_ITS | Encounter Summary ---
:1940 Author Care Team Providers Name Role Phone Dr. Scar Motley Primary Care Provider [phone] Ralf Starr MD OTHER [phone] Ben Sandoval OTHER [phone] Reason for Visit Other Assessment and Plan [...]
--- OUTSIDE RECORDS SUMMARY | 2020-09-09 07:22 | XMS_ITS | Encounter Summary ---
:1940 Author Care Team Providers Name Role Phone Dr. Scar Motley Primary Care Provider [phone] Reason for Visit diabetic foot care Assessment [...]
--- OUTSIDE RECORDS SUMMARY | 2020-09-09 07:22 | XMS_ITS ---
:1940 External Reference #:[id number] Author Care Team Providers Name Role Phone DR. MALCOM SILVA Primary Care Provider [phone] Allergies Code Code System Name Reaction Severity [...]
--- OUTSIDE RECORDS SUMMARY | 2020-09-09 07:22 | XMS_ITS | Encounter Summary ---
:1940 Author Care Team Providers Name Role Phone Dr. Scar Motley Primary Care Provider [phone] Ralf Starr MD OTHER [phone] Ben Sandoval OTHER [phone] Reason for Visit physical Assessment and Plan [...]
--- OUTSIDE RECORDS SUMMARY | 2020-09-09 07:22 | XMS_ITS ---
:1940 External Reference #:[id number] Author Care Team Providers Name Role Phone DR. MALCOM SILVA Primary Care Provider [phone] KATHLEEN HUDSON MD OTHER [phone] HOPE HERRERA OTHER [phone] Allergies Code Code System Name Reaction Severity Status Onset 46156 RxNorm Accupril Cough ? Active ? 884850 RxNorm Diovan Vomiting ? Active ? Notes: Some allergies listed in Document: #[id number] could not be added to this patient's [...]
[2020-09-09 07:29] LABS: Glucose Point of Care 161 (65-105)
--- NOTE | 2020-09-09 10:02 | WPDREHABHP ---
H&P: HPI History of Present Illness Date/Time: 09/09/20 10:02 Cheif Complaint: Weakness Narrative: Kylah Peña is a 79 year old female with a PMH of CHF, DMII, HLD and HTN that was admitted to swing bed from [place] for weakness after COVID. She was weaned off O2 but was still very weak so she was transferred here. Per H&P she tested positive around 06/29 but she is not completely sure. Today she reports significant fatigue but no CP, SOB, dizziness or GI issues. Review of Systems Constitutional Constitutional: Denies body ache(s), Denies chills and Denies fever(s) Eyes Eyes: Reports no additional eye complaints ENT Reports system reviewed and no additional complaints, except as documented Cardiovascular Cardiovascular: Denies chest pain with activity, Denies irregular heart rhythm, Denies palpitations and Denies dyspnea Respiratory Respiratory: Denies dyspnea Gastrointestinal Gastrointestinal: Reports no additional gastrointestinal complaints Musculoskeletal Musculoskeletal: Reports no additional musculoskeletal complaints Integumentary/Breasts Skin/Breast: Reports system reviewed and no additional complaints, except as docu Neurologic Reports system reviewed and no additional complaints, except as documented Psychiatric Psychiatric: Reports no additional psychiatric complaints Endocrine Endocrine: Reports no additional endocrine complaints and Denies palpitations Hematologic/Lymphatic Hematologic/Lymphatic: Reports no additional hematologic/lymphatic complaints Allergic/Immunologic Allergic/Immunologic: Reports no additional allergic/immunologic complaints [facility] Past Medical History Medical History History of CHF (congestive heart failure) History of diabetes mellitus History of hyperlipidemia Hypertension Surgical History Surgical History History of heart artery stent Family History Family History Mother Congestive heart failure Father Congestive heart failure Sibling Congestive heart failure Emphysema lung Breast cancer Social History Social History Social History: Patient has never smoked. She does not drink alcohol or do drugs. She would like to be a full code. If she is unable to make decisions for herself she would like her son, Franco, to make these decisions. Smoking status: Never smoker Alcohol intake: never Substance use: never Substance use type: does not use Gender identity (if verbalized by the patient): Female Sexual Orientation (if Verbalized by the Patient): Straight or Heterosexual Spiritual care concerns: No Meds Home Medications and Allergies Home Medications Medication Instructions Recorded Confirmed Type Entresto 1 tablet PO BID 09/04/20 09/09/20 History Lantus Solostar U-100 Insulin 15 unit SUBCUT HS 09/04/20 09/09/20 History furosemide 40 mg PO DAILY 09/04/20 09/09/20 History glimepiride 4 mg PO BID 09/04/20 09/09/20 History metoprolol tartrate 25 mg PO BID 09/04/20 09/09/20 History nifedipine 30 mg PO BID 09/04/20 09/09/20 History potassium chloride 10 meq PO BID 09/04/20 09/09/20 History quetiapine 25 mg PO HS 09/04/20 09/09/20 History simvastatin [Zocor] 40 mg PO HS 09/04/20 09/09/20 History albuterol sulfate 2 puff INHALATION QID PRN #8.5 g 09/08/20 09/09/20 Rx aspirin 81 mg PO QAM 30 Days #30 tablet 09/08/20 09/09/20 Rx Allergies Allergy/AdvReac Type Severity Reaction Status Date / Time No Known Allergies Allergy Verified 09/05/20 05:16 Vital Signs Vital Signs - 24 hr 09/09/20 01:38 09/09/20 03:00 09/09/20 07:25 Temperature 97 F L 97.6 F Pulse Rate 83 80 91 Respiratory Rate 20 18 18 Blood Pressure 135/73 123/60 Pulse Oximetry 96 96 96 Exam Const General: cooperative, comfortable, no acute distress, wel
[2020-09-09] MEDS: METOPROLOL TARTRATE 25 MG TABLET PO ×2 (11:30→21:02)
[2020-09-09] MEDS: ASPIRIN 81 MG ENTERIC TABLET PO (11:30)
[2020-09-09] MEDS: FUROSEMIDE 40 MG TABLET PO (11:30)
[2020-09-09] MEDS: POTASSIUM CHLORIDE 10 MEQ TABLET PO ×2 (11:30→16:11)
[2020-09-09] MEDS: NIFEdipine 30 MG TAB.ER.24 PO (11:30)
[2020-09-09] MEDS: SACUBITRIL/VALSARTAN 49-51 MG TABLET 1 TABLET PO ×2 (11:31→21:02)
[2020-09-09] MEDS: GLIMEPIRIDE 2 MG TABLET 4 MG PO (11:31)
[2020-09-09 12:14] LABS: Glucose Point of Care 210 (65-105)
[2020-09-09 16:46] LABS: Glucose Point of Care 322 (65-105)
[2020-09-09] MEDS: INSULIN GLARGINE (*BKC) 100 UNITS/ML 15 UNITS SUB-Q (21:00)
[2020-09-09] MEDS: SIMVASTATIN 10 MG TABLET 40 MG PO (21:01)
[2020-09-09] MEDS: QUEtiapine FUMARATE 25 MG TABLET PO (21:02)
[2020-09-09 21:12] LABS: Glucose Point of Care 367 (65-105)
[2020-09-10 08:00] VITALS: BP 129/57; PULSE 77; RESP 18; TEMP 36.4; O2SAT 95
[2020-09-10] MEDS: SACUBITRIL/VALSARTAN 49-51 MG TABLET 1 TABLET PO ×2 (10:15→20:56)
[2020-09-10 10:16] VITALS: PULSE 77
[2020-09-10] MEDS: FUROSEMIDE 40 MG TABLET PO (10:16)
[2020-09-10] MEDS: GLIMEPIRIDE 2 MG TABLET 4 MG PO (10:16)
[2020-09-10] MEDS: METOPROLOL TARTRATE 25 MG TABLET PO ×2 (10:16→20:21)
[2020-09-10] MEDS: ASPIRIN 81 MG ENTERIC TABLET PO (10:16)
[2020-09-10] MEDS: NIFEdipine 30 MG TAB.ER.24 PO (10:17)
[2020-09-10] MEDS: POTASSIUM CHLORIDE 10 MEQ TABLET PO ×2 (10:17→16:57)
[2020-09-10 11:36] LABS: Glucose Point of Care 299 (65-105)
--- NOTE | 2020-09-10 13:10 | PC.NURSE ---
Patient transferred from to
--- NOTE | 2020-09-10 14:32 | P.PN_ITS ---
Progress Note: A&P Assessment and Plan (1) Generalized weakness: Code(s): R53.1 - Weakness <Zach GuptaЕЛЕНАMartiRichard - Last Filed: 09/10/20 14:41> Status: Acute <Zach GuptaNEHA - Last Filed: 09/10/20 14:41> Assessment and Plan: ? Exhibit tolerance during physical activity as evidenced by a normal fluctuation of vital signs during physical activity. ? Patient will be ability to perform required activities of daily living. ? Provide appropriate nutrition for healing and strength. ? Use appropriate to prevent falls. ? Continue physical therapy/occupational therapy. <Zach GutierrezNEHA Drake - Last Filed: 09/10/20 14:41> (2) Hypertension: Code(s): I10 - Essential (primary) hypertension <Zach May NEHA Gupta - Last Filed: 09/10/20 14:41> Status: Chronic <Zach BrendaЕЛЕНА DrakeMartiRichard - Last Filed: 09/10/20 14:41> Assessment and Plan: * Blood pressure stable * Continue metoprolol, Procardia,entresto * Will adjust medication as needed * Vital signs as ordered <Srinivasananjali BrendaNEHA Drake - Last Filed: 09/10/20 14:41> (3) Type 2 diabetes mellitus: Code(s): E11.9 - Type 2 diabetes mellitus without complications <Zach GutierrezNEHA Drake - Last Filed: 09/10/20 14:41> Status: Chronic <Srinivasananjali BrendaJuanito AlonsoNEHA - Last Filed: 09/10/20 14:41> Assessment and Plan: * Blood sugar * Continue Accu-Cheks sliding scale and hypoglycemic protocol * Will adjust medication as needed * Continue diabetic diet * A1c 8.5 * Continue Lantus 15 units at bedtimem glipizide andentresto <NEHA Cook - Last Filed: 09/10/20 14:41> (4) Acute respiratory failure with hypoxia: Code(s): J96.01 - Acute respiratory failure with hypoxia <NEHA Cook - Last Filed: 09/10/20 14:41> Status: Resolved <NEHA Cook - Last Filed: 09/10/20 14:41> Assessment and Plan: * Resolved * Secondary to Covid <Zach Gupta DRAMATIC AGENT-C - Last Filed: 09/10/20 14:41> (5) COVID-19: Code(s): U07.1 - COVID-19 <Zach Gupta NEHA - Last Filed: 09/10/20 14:41> Status: Acute <Zach Gupta ROBINRichard - Last Filed: 09/10/20 14:41> Assessment and Plan: * Patient tested positive at an outside facility * Completed remdesivir in dexamethasone <Zach GutierrezNEHA Drake - Last Filed: 09/10/20 14:41> (6) Transaminitis: Code(s): R74.01 - Elevation of levels of liver transaminase levels <Zach Gupta ROBINRichard - Last Filed: 09/10/20 14:41> Status: Acute <Zach Gupta NEHA - Last Filed: 09/10/20 14:41> Assessment and Plan: * Patient's liver enzymes elevated at [place] possibly due to viral illness * Will recheck in the a.m. <Zach GutierrezJuanito Alonso DRAMATIC AGENTMartiRichard - Last Filed: 09/10/20 14:41> (7) CHF (congestive heart failure): Code(s): I50.9 - Heart failure, unspecified <Zach GutierrezJuanito Alonso ROBINRichard - Last Filed: 09/10/20 14:41> Status: Acute <Zach Gupta NEHA - Last Filed: 09/10/20 14:41> Assessment and Plan: * Will check a BMP in a.m. * Does not appear to be in fluid overload * Continue Lasix 40 mg daily and metoprolol <Zach GutierrezЕЛЕНА DrakeMartiRichard - Last Filed: 09/10/20 14:41> (8) Insomnia: Code(s): G47.00 - Insomnia, unspecified <Zach GutierrezJuanito Alonso DRAMATIC AGENT-C - Last Filed: 09/10/20 14:41> Status: Acute <Zach GutierrezJuanito Gupta DRAMATIC AGENT-C - Last Filed: 09/10/20 14:41> Assessment and Plan: Continue quetiapine <NEHA Cook - Las
--- NOTE | 2020-09-10 14:32 | WPDPN ---
Progress Note: A&P Assessment and Plan (1) Generalized weakness: Code(s): R53.1 - Weakness <Zach GuptaЕЛЕНАMartiRichard - Last Filed: 09/10/20 14:41> Status: Acute <Zach GuptaЕЛЕНАMartiRichard - Last Filed: 09/10/20 14:41> Assessment and Plan: ? Exhibit tolerance during physical activity as evidenced by a normal fluctuation of vital signs during physical activity. ? Patient will be ability to perform required activities of daily living. ? Provide appropriate nutrition for healing and strength. ? Use appropriate to prevent falls. ? Continue physical therapy/occupational therapy. <Zach GutierrezЕЛЕНА DrakeMartiRichard - Last Filed: 09/10/20 14:41> (2) Hypertension: Code(s): I10 - Essential (primary) hypertension <Zach May ЕЛЕНА GuptaMartiC - Last Filed: 09/10/20 14:41> Status: Chronic <Zach BrendaЕЛЕНА DrakeMartiRichard - Last Filed: 09/10/20 14:41> Assessment and Plan: Blood pressure stable Continue metoprolol, Procardia,entresto Will adjust medication as needed Vital signs as ordered <Srinivasananjali BrendaЕЛЕНА DrakeMartiC - Last Filed: 09/10/20 14:41> (3) Type 2 diabetes mellitus: Code(s): E11.9 - Type 2 diabetes mellitus without complications <Zach GutierrezROBIN DrakeC - Last Filed: 09/10/20 14:41> Status: Chronic <Srinivasananjali Yadira ЕЛЕНА GuptaMartiRichard - Last Filed: 09/10/20 14:41> Assessment and Plan: Blood sugar Continue Accu-Cheks sliding scale and hypoglycemic protocol Will adjust medication as needed Continue diabetic diet A1c 8.5 Continue Lantus 15 units at bedtimem glipizide andentresto <SrinivasanЕЛЕНА Calixto-Richard - Last Filed: 09/10/20 14:41> (4) Acute respiratory failure with hypoxia: Code(s): J96.01 - Acute respiratory failure with hypoxia <ROBIN CookC - Last Filed: 09/10/20 14:41> Status: Resolved <ЕЛЕНА CookMartiRichard - Last Filed: 09/10/20 14:41> Assessment and Plan: Resolved Secondary to Covid <Zach Gupta ЕЛЕНА-C - Last Filed: 09/10/20 14:41> (5) COVID-19: Code(s): U07.1 - COVID-19 <Zach Gupta ЕЛЕНАMartiC - Last Filed: 09/10/20 14:41> Status: Acute <Zach Gupta ROBINRichard - Last Filed: 09/10/20 14:41> Assessment and Plan: Patient tested positive at an outside facility Completed remdesivir in dexamethasone <Zach Gupta PRODUCTION SUPPORT SUPERVISOR-C - Last Filed: 09/10/20 14:41> (6) Transaminitis: Code(s): R74.01 - Elevation of levels of liver transaminase levels <Zach Gupta ROBINC - Last Filed: 09/10/20 14:41> Status: Acute <Zach Gupta ROBINRichard - Last Filed: 09/10/20 14:41> Assessment and Plan: Patient's liver enzymes elevated at [place] possibly due to viral illness Will recheck in the a.m. <Zach Gupta ROBINC - Last Filed: 09/10/20 14:41> (7) CHF (congestive heart failure): Code(s): I50.9 - Heart failure, unspecified <Zach Gupta ЕЛЕНА-C - Last Filed: 09/10/20 14:41> Status: Acute <Zach Gupta NEHA - Last Filed: 09/10/20 14:41> Assessment and Plan: Will check a BMP in a.m. Does not appear to be in fluid overload Continue Lasix 40 mg daily and metoprolol <Zach GutierrezJuanito Alonso PRODUCTION SUPPORT SUPERVISOR-C - Last Filed: 09/10/20 14:41> (8) Insomnia: Code(s): G47.00 - Insomnia, unspecified <Zach Gupta PRODUCTION SUPPORT SUPERVISOR-C - Last Filed: 09/10/20 14:41> Status: Acute <Zach Gupta PRODUCTION SUPPORT SUPERVISOR-Richard - Last Filed: 09/10/20 14:41> Assessment and Plan: Continue quetiapine <NEHA Cook - Last Filed: 09/10/20 14:41> (9) HLD (hyperlipidemia): Code(s): E78.5 - Hyperlipidemia, unspecified <NEHA Cook - Last Filed: 09/10/20 14:41> Status: Acute <NEHA Cook - Last Filed: 09/10/20 14:41> Assessment and Plan: Continue statins <NEHA Cook - Last Filed: 09/10/20 14:41> Review of System
[2020-09-10 16:00] VITALS: BP 125/56; PULSE 87; RESP 20; TEMP 36.9; O2SAT 100
[2020-09-10 20:21] VITALS: PULSE 90
[2020-09-10] MEDS: guaiFENesin 12 HR 600 MG TABCR PO (20:31)
[2020-09-10] MEDS: DOCUSATE SODIUM 100 MG CAPSULE PO (20:31)
[2020-09-10] MEDS: SIMVASTATIN 10 MG TABLET 40 MG PO (20:33)
[2020-09-10 20:46] LABS: Glucose Point of Care 230 (65-105)
[2020-09-10] MEDS: INSULIN GLARGINE (*BKC) 100 UNITS/ML 15 UNITS SUB-Q (20:55)
[2020-09-10] MEDS: QUEtiapine FUMARATE 25 MG TABLET PO (20:56)
--- NOTE | 2020-09-10 21:59 | PC.NURSE ---
Patient pleasant and able to make needs known. Patient incont of urine, pericare performed, skin barrier applied to coccyx, full bed change performed. Patient able to help roll self in bed. SR up x2. Call light and belongings within reach.
[2020-09-11] VITALS: BP 120/60; PULSE 90; RESP 16; TEMP 36.6; O2SAT 90
--- NOTE | 2020-09-11 00:29 | PC.NURSE ---
Patient resting quietly with call light and belongings within reach. Able to turn self. No signs of resp distress.
--- NOTE | 2020-09-11 02:19 | PC.NURSE ---
Patient resting quietly. Nurse woke patient to check for incont. Patient incont of urine. Pericare and skin barrier applied. Nurse offered blanket, but patient stated her sheet was enough. SR up x2. Call light and belongings within reach.
--- NOTE | 2020-09-11 05:18 | PC.NURSE ---
Incontinent of urine, able to move side to side in bed for cleansing, personal items in reach, call light in reach of patient
[2020-09-11 07:32] VITALS: BP 116/70; PULSE 82; RESP 20; TEMP 36.8; O2SAT 94
[2020-09-11 08:19] VITALS: PULSE 82
[2020-09-11] MEDS: ASPIRIN 81 MG ENTERIC TABLET PO (08:19)
[2020-09-11] MEDS: METOPROLOL TARTRATE 25 MG TABLET PO ×2 (08:19→21:05)
[2020-09-11] MEDS: SACUBITRIL/VALSARTAN 49-51 MG TABLET 1 TABLET PO ×2 (08:19→21:06)
[2020-09-11] MEDS: GLIMEPIRIDE 2 MG TABLET 4 MG PO (08:20)
[2020-09-11] MEDS: FUROSEMIDE 40 MG TABLET PO (08:20)
[2020-09-11] MEDS: DOCUSATE SODIUM 100 MG CAPSULE PO ×2 (08:20→21:05)
[2020-09-11] MEDS: POTASSIUM CHLORIDE 10 MEQ TABLET PO ×2 (08:21→17:45)
[2020-09-11] MEDS: guaiFENesin 12 HR 600 MG TABCR PO ×2 (08:21→21:07)
[2020-09-11] MEDS: NIFEdipine 30 MG TAB.ER.24 PO (08:21)
--- NOTE | 2020-09-11 11:25 | PC.NURSE ---
incontinent of urine, cleansed and repositioned in bed
[2020-09-11 11:26] LABS: Glucose Point of Care 345 (65-105)
--- NOTE | 2020-09-11 12:00 | PC.NURSE ---
up to chair per help of PT department, will sit up for lunch
--- NOTE | 2020-09-11 12:42 | PC.NURSE ---
max assist to get from chair back in to bed,
--- NOTE | 2020-09-11 13:14 | PM.EVENT ---
Event Note Event Note Event Note: Vital signs reviewed
[2020-09-11] MEDS: SIMVASTATIN 10 MG TABLET 40 MG PO (21:04)
[2020-09-11 21:05] VITALS: PULSE 82
[2020-09-11] MEDS: QUEtiapine FUMARATE 25 MG TABLET PO (21:05)
[2020-09-11] MEDS: INSULIN GLARGINE (*BKC) 100 UNITS/ML 15 UNITS SUB-Q (21:07)
[2020-09-11 21:44] LABS: Glucose Point of Care 284 (65-105)
[2020-09-12] VITALS: BP 112/69; PULSE 72; RESP 20; TEMP 36.5; O2SAT 97
--- NOTE | 2020-09-12 00:05 | PC.NURSE ---
Pt incontinent of a large amount of urine; Pt cleaned, changed and repositioned to comfort.
--- NOTE | 2020-09-12 02:03 | PC.NURSE ---
Pt remains dry at this time and was turned and repositioned to comfort.
--- NOTE | 2020-09-12 04:01 | PC.NURSE ---
Pt remains dry at this time and doesnt voice any c/o discomfort.
[2020-09-12 05:40] LABS: Hematocrit 34.4 % (35.0-42.0); Hemoglobin 10.7 g/dL (11.7-13.8); Mean Corpuscular HGB Conc 31.1 g/dL (32.0-36.0); Mean Corpuscular Hemoglobin 29.9 pg (27.0-31.0); Mean Corpuscular Volume 96.1 fL (78.0-102.0); Mean Platelet Volume 11.1 fl (9.2-11.8); Platelet Count Result 276 K/mm3 (150-420); Red Blood Count 3.58 M/mm3 (4.20-5.40); Red Cell Distribution Width 12.9 % (11.6-14.4); White Blood Count 6.2 K/mm3 (4.8-10.8)
[2020-09-12 05:58] LABS: Alanine Aminotransferase 32 U/L (14-59); Albumin Level 2.6 g/dL (3.4-5.0); Alkaline Phosphatase 103 U/L (46-116); Anion Gap 8 mmol/L (8-16); Aspartate Amino Transferase 25 U/L (15-37); Bilirubin,Total 0.7 mg/dL (0.00-1.00); Blood Urea Nitrogen 19 mg/dL (7-18); Calcium 8.9 mg/dL (8.5-10.1); Carbon Dioxide 28 mmol/L (21-32); Chloride 103 mmol/L (98-108); Estimated CRCL calculation 33 ml/min; Estimated Glomerular Filt Rate 45; Glucose 160 mg/dL (70-99); Osmolality Calculated 293 mOsm/kg (285-295); Potassium 3.8 mmol/L (3.5-5.1); Sodium 139 mmol/L (136-145); Total Protein 5.5 g/dL (6.4-8.2)
--- NOTE | 2020-09-12 07:18 | PC.NURSE ---
Pt remains dry at this time; Pt weighed per bed scale-69.0. Pt doesnt voice any c/o discomfort.
[2020-09-12 07:20] VITALS: BP 113/74; PULSE 68; RESP 18; TEMP 36.4; O2SAT 93
[2020-09-12 09:20] VITALS: PULSE 69
[2020-09-12] MEDS: ASPIRIN 81 MG ENTERIC TABLET PO (09:20)
[2020-09-12] MEDS: DOCUSATE SODIUM 100 MG CAPSULE PO ×2 (09:20→20:25)
[2020-09-12] MEDS: SACUBITRIL/VALSARTAN 49-51 MG TABLET 1 TABLET PO ×2 (09:20→20:25)
[2020-09-12] MEDS: METOPROLOL TARTRATE 25 MG TABLET PO ×2 (09:20→20:25)
[2020-09-12] MEDS: NIFEdipine 30 MG TAB.ER.24 PO (09:20)
[2020-09-12] MEDS: GLIMEPIRIDE 2 MG TABLET 4 MG PO (09:20)
[2020-09-12] MEDS: FUROSEMIDE 40 MG TABLET PO (09:20)
[2020-09-12] MEDS: guaiFENesin 12 HR 600 MG TABCR PO ×2 (09:20→20:26)
[2020-09-12] MEDS: POTASSIUM CHLORIDE 10 MEQ TABLET PO ×2 (09:21→17:02)
[2020-09-12 12:21] LABS: Glucose Point of Care 285 (65-105)
[2020-09-12 15:20] VITALS: BP 114/51; PULSE 83; RESP 18; TEMP 36.7; O2SAT 98
[2020-09-12 17:11] LABS: Glucose Point of Care 265 (65-105)
[2020-09-12] MEDS: SIMVASTATIN 10 MG TABLET 40 MG PO (20:25)
[2020-09-12] MEDS: INSULIN GLARGINE (*BKC) 100 UNITS/ML 15 UNITS SUB-Q (20:26)
[2020-09-12] MEDS: QUEtiapine FUMARATE 25 MG TABLET PO (20:26)
[2020-09-12 20:48] LABS: Glucose Point of Care 212 (65-105)
[2020-09-12 23:47] VITALS: BP 101/57; PULSE 87; RESP 18; TEMP 36.8; O2SAT 94
--- NOTE | 2020-09-13 01:48 | PC.NURSE ---
pt sleeping, respirations even and regular, no evidence of distress noted
[2020-09-13 08:00] VITALS: BP 123/59; PULSE 80; RESP 20; TEMP 36.8; O2SAT 98
[2020-09-13 08:00] LABS: Glucose Point of Care 167 (65-105)
[2020-09-13] MEDS: NIFEdipine 30 MG TAB.ER.24 PO (08:27)
[2020-09-13 08:28] VITALS: PULSE 80
[2020-09-13] MEDS: POTASSIUM CHLORIDE 10 MEQ TABLET PO ×2 (08:28→16:55)
[2020-09-13] MEDS: FUROSEMIDE 40 MG TABLET PO (08:28)
[2020-09-13] MEDS: ASPIRIN 81 MG ENTERIC TABLET PO (08:28)
[2020-09-13] MEDS: guaiFENesin 12 HR 600 MG TABCR PO ×2 (08:28→20:40)
[2020-09-13] MEDS: METOPROLOL TARTRATE 25 MG TABLET PO ×2 (08:28→20:41)
[2020-09-13] MEDS: DOCUSATE SODIUM 100 MG CAPSULE PO ×2 (08:28→20:40)
[2020-09-13] MEDS: SACUBITRIL/VALSARTAN 49-51 MG TABLET 1 TABLET PO ×2 (08:29→20:41)
[2020-09-13] MEDS: GLIMEPIRIDE 2 MG TABLET 4 MG PO (08:29)
--- NOTE | 2020-09-13 10:00 | PC.NURSE ---
Patient repositioned in bed and resting. No complaints at this time. Call light and needed items within reach.
[2020-09-13 11:50] LABS: Glucose Point of Care 172 (65-105)
[2020-09-13 16:00] VITALS: BP 100/68; PULSE 88; RESP 14; TEMP 36.8; O2SAT 93
[2020-09-13 17:02] LABS: Glucose Point of Care 150 (65-105)
--- NOTE | 2020-09-13 18:35 | PC.NURSE ---
Patient resting in bed. No c/o offered. HOB elevated. No signs of hypo/hyperglycemia. SR up x2. Call light and belongings within reach.
[2020-09-13 20:36] LABS: Glucose Point of Care 222 (65-105)
[2020-09-13 20:41] VITALS: PULSE 74
[2020-09-13] MEDS: QUEtiapine FUMARATE 25 MG TABLET PO (20:41)
[2020-09-13] MEDS: INSULIN GLARGINE (*BKC) 100 UNITS/ML 15 UNITS SUB-Q (20:42)
[2020-09-13] MEDS: SIMVASTATIN 10 MG TABLET 40 MG PO (20:42)
--- NOTE | 2020-09-13 22:03 | PC.NURSE ---
Incont of urine, pericare given. P.O. fluids offered. SR up x2. Call light and belongings within reach.,
[2020-09-13 23:55] VITALS: BP 111/60; PULSE 85; RESP 20; TEMP 36.6; O2SAT 94
--- NOTE | 2020-09-13 23:58 | PC.NURSE ---
Pt resting per bed. Has on complaints. Call novoa in reach. Reminded to call with needs.
[2020-09-14] VITALS: BP 111/60; PULSE 85; RESP 20; TEMP 36.6; O2SAT 94
--- NOTE | 2020-09-14 02:02 | PC.NURSE ---
Pt resting per bed. Does not want to be turned at this time. Skin clean and dry. Has no complaints. Reminded to call with needs.
--- NOTE | 2020-09-14 05:33 | PC.NURSE ---
Incontinent care provided. pt turned and repositioned with assist of 2. has no complaints. reminded to call with needs.
[2020-09-14 07:20] VITALS: BP 125/61; PULSE 81; RESP 18; TEMP 37.2; O2SAT 96
[2020-09-14 08:08] LABS: Glucose Point of Care 95 (65-105)
[2020-09-14 08:34] VITALS: PULSE 78
[2020-09-14] MEDS: SACUBITRIL/VALSARTAN 49-51 MG TABLET 1 TABLET PO ×2 (08:34→21:21)
[2020-09-14] MEDS: POTASSIUM CHLORIDE 10 MEQ TABLET PO ×2 (08:34→16:53)
[2020-09-14] MEDS: GLIMEPIRIDE 2 MG TABLET 4 MG PO (08:34)
[2020-09-14] MEDS: ASPIRIN 81 MG ENTERIC TABLET PO (08:34)
[2020-09-14] MEDS: METOPROLOL TARTRATE 25 MG TABLET PO ×2 (08:34→21:21)
[2020-09-14] MEDS: guaiFENesin 12 HR 600 MG TABCR PO ×2 (08:35→21:20)
[2020-09-14] MEDS: DOCUSATE SODIUM 100 MG CAPSULE PO (08:35)
[2020-09-14] MEDS: FUROSEMIDE 40 MG TABLET PO (08:35)
[2020-09-14] MEDS: NIFEdipine 30 MG TAB.ER.24 PO (08:35)
[2020-09-14 11:48] LABS: Glucose Point of Care 213 (65-105)
[2020-09-14 16:00] VITALS: BP 129/64; PULSE 86; RESP 16; TEMP 37.1; O2SAT 95
[2020-09-14 17:26] LABS: Glucose Point of Care 193 (65-105)
[2020-09-14] MEDS: SIMVASTATIN 10 MG TABLET 40 MG PO (21:20)
[2020-09-14] MEDS: QUEtiapine FUMARATE 25 MG TABLET PO (21:20)
[2020-09-14 21:21] VITALS: PULSE 75
[2020-09-14] MEDS: INSULIN GLARGINE (*BKC) 100 UNITS/ML 15 UNITS SUB-Q (21:22)
[2020-09-14 22:04] LABS: Glucose Point of Care 303 (65-105)
[2020-09-15] VITALS: BP 125/65; PULSE 70; RESP 16; TEMP 36.4; O2SAT 94
[2020-09-15 05:44] LABS: Hematocrit 33.7 % (35.0-42.0); Hemoglobin 10.7 g/dL (11.7-13.8); Mean Corpuscular HGB Conc 31.8 g/dL (32.0-36.0); Mean Corpuscular Hemoglobin 30.9 pg (27.0-31.0); Mean Corpuscular Volume 97.4 fL (78.0-102.0); Mean Platelet Volume 10.7 fl (9.2-11.8); Platelet Count Result 275 K/mm3 (150-420); Red Blood Count 3.46 M/mm3 (4.20-5.40); White Blood Count 5.8 K/mm3 (4.8-10.8)
[2020-09-15 06:13] LABS: Alanine Aminotransferase 30 U/L (14-59); Albumin Level 2.8 g/dL (3.4-5.0); Alkaline Phosphatase 112 U/L (46-116); Anion Gap 9 mmol/L (8-16); Aspartate Amino Transferase 23 U/L (15-37); Bilirubin,Total 0.6 mg/dL (0.00-1.00); Blood Urea Nitrogen 23 mg/dL (7-18); Calcium 8.9 mg/dL (8.5-10.1); Carbon Dioxide 28 mmol/L (21-32); Chloride 104 mmol/L (98-108); Estimated CRCL calculation 28 ml/min; Estimated Glomerular Filt Rate 44; Glucose 140 mg/dL (70-99); Osmolality Calculated 297 mOsm/kg (285-295); Potassium 4.1 mmol/L (3.5-5.1); Sodium 141 mmol/L (136-145)
[2020-09-15 08:00] VITALS: BP 131/68; PULSE 79; RESP 16; TEMP 36.3; O2SAT 100
[2020-09-15 08:20] LABS: Glucose Point of Care 128 (65-105)
[2020-09-15] MEDS: DOCUSATE SODIUM 100 MG CAPSULE PO ×2 (09:26→20:37)
[2020-09-15 09:27] VITALS: PULSE 95
[2020-09-15] MEDS: POTASSIUM CHLORIDE 10 MEQ TABLET PO ×2 (09:27→17:30)
[2020-09-15] MEDS: METOPROLOL TARTRATE 25 MG TABLET PO ×2 (09:27→20:37)
[2020-09-15] MEDS: SACUBITRIL/VALSARTAN 49-51 MG TABLET 1 TABLET PO ×2 (09:27→21:07)
[2020-09-15] MEDS: GLIMEPIRIDE 2 MG TABLET 4 MG PO (09:28)
[2020-09-15] MEDS: guaiFENesin 12 HR 600 MG TABCR PO ×2 (09:29→20:37)
[2020-09-15] MEDS: NIFEdipine 30 MG TAB.ER.24 PO (09:29)
[2020-09-15] MEDS: ASPIRIN 81 MG ENTERIC TABLET PO (09:29)
[2020-09-15] MEDS: FUROSEMIDE 40 MG TABLET PO (09:29)
[2020-09-15 11:39] LABS: Glucose Point of Care 247 (65-105)
--- NOTE | 2020-09-15 13:23 | P.PN_ITS ---
Progress Note: A&P Assessment and Plan (1) Generalized weakness: Code(s): R53.1 - Weakness <Zeke TovarDEEP-C - Last Filed: 09/15/20 13:45> Status: Acute <Zeke Tovar SECOND CHEF-C - Last Filed: 09/15/20 13:45> Assessment and Plan: patient working with physical therapy with goals of performing ADLs, increasing stamina, patient admits she does have difficulty with sitting due to chronic back pain, waiting PT OT recommendations <Zeke Tovar SECOND CHEF-C - Last Filed: 09/15/20 13:45> (2) Hypertension: Code(s): I10 - Essential (primary) hypertension <Zeke Tovar SECOND CHEF-C - Last Filed: 09/15/20 13:45> Status: Chronic <Zeke TovarDEEP-C - Last Filed: 09/15/20 13:45> Assessment and Plan: * Blood pressure stable * Continue metoprolol, Procardia, entresto * Will adjust medication as needed * Vital signs as ordered 09/15/2020 no changes needed at this time. Vital signs remained stable <Zeke TovarDEEP-C - Last Filed: 09/15/20 13:45> (3) Type 2 diabetes mellitus: Code(s): E11.9 - Type 2 diabetes mellitus without complications <Zeke TovarDEEP-C - Last Filed: 09/15/20 13:45> Status: Chronic <Zeke TovarDEEP-C - Last Filed: 09/15/20 13:45> Assessment and Plan: * Continue Accu-Cheks sliding scale and hypoglycemic protocol * Will adjust medication as needed * Continue diabetic diet * Continue Lantus 15 units at bedtime, glipizide, and Entresto 09/15/2020 no changes this time <Zeke TovarDEEP-C - Last Filed: 09/15/20 13:45> (4) Acute respiratory failure with hypoxia: Code(s): J96.01 - Acute respiratory failure with hypoxia <Zeke ValdezDEEP elise-C - Last Filed: 09/15/20 13:45> Status: Resolved <Zeke Valdezgt, SECOND CHEF-C - Last Filed: 09/15/20 13:45> Assessment and Plan: * Resolved * Secondary to Covid 09/15/2020 patient has no complaints of respiratory issues <Zeke Tovar SECOND CHEF-C - Last Filed: 09/15/20 13:45> (5) COVID-19: Code(s): U07.1 - COVID-19 <Zeke Tovar SECOND CHEF-C - Last Filed: 09/15/20 13:45> Status: Acute <Zeke Tovar SECOND CHEF-C - Last Filed: 09/15/20 13:45> Assessment and Plan: * Patient tested positive at an outside facility * Completed remdesivir in dexamethasone <Zeke Tovar APN-C - Last Filed: 09/15/20 13:45> (6) Transaminitis: Code(s): R74.01 - Elevation of levels of liver transaminase levels <Zeke Tovar SECOND CHEF-C - Last Filed: 09/15/20 13:45> Status: Acute <Zeke Tovar SECOND CHEF-C - Last Filed: 09/15/20 13:45> Assessment and Plan: 09/15/2020 AST/ALT 23/30 <Zeke Tovar SECOND CHEF-C - Last Filed: 1 11/16/19 13:45> (7) CHF (congestive heart failure): Code(s): I50.9 - Heart failure, unspecified <Zeke Tovar SECOND CHEF-C - Last Filed: 09/15/20 13:45> Status: Acute <Zeke Tovar SECOND CHEF-C - Last Filed: 09/15/20 13:45> Assessment and Plan: * Will check a BMP in a.m. * Does not appear to be in fluid overload * Continue Lasix 40 mg daily and metoprolol 09/15/2020 no peripheral edema lungs are clear <Zeke Tovar SECOND CHEF-C - Last Filed: 09/15/20 13:45> (8) Insomnia: Code(s): G47.00 - Insomnia, unspecified <Zeke Tovar SECOND CHEF-C - Last Filed: 09/15/20 13:45> Status: Acute <MIGUEL Mendez - Last Filed: 09/15/20 13:45> Assessment and Plan: Continue quetiapine <MIGUEL Mendez - Last Filed: 09/15/20 13:45> (9) HLD (hyperlipidemia): Code(s):
--- NOTE | 2020-09-15 13:23 | WPDPN ---
Progress Note: A&P Assessment and Plan (1) Generalized weakness: Code(s): R53.1 - Weakness <Zeke Tovar BLADDER TRIMMER-C - Last Filed: 09/15/20 13:45> Status: Acute <FAITH MendezN-C - Last Filed: 09/15/20 13:45> Assessment and Plan: patient working with physical therapy with goals of performing ADLs, increasing stamina, patient admits she does have difficulty with sitting due to chronic back pain, waiting PT OT recommendations <Zeke Tovar BLADDER TRIMMER-C - Last Filed: 09/15/20 13:45> (2) Hypertension: Code(s): I10 - Essential (primary) hypertension <Zeke Tovar BLADDER TRIMMER-C - Last Filed: 09/15/20 13:45> Status: Chronic <Zeke Tovar BLADDER TRIMMER-C - Last Filed: 09/15/20 13:45> Assessment and Plan: Blood pressure stable Continue metoprolol, Procardia, entresto Will adjust medication as needed Vital signs as ordered 09/15/2020 no changes needed at this time. Vital signs remained stable <Zeke Tovar BLADDER TRIMMER-C - Last Filed: 09/15/20 13:45> (3) Type 2 diabetes mellitus: Code(s): E11.9 - Type 2 diabetes mellitus without complications <Zeke Tovar BLADDER TRIMMER-C - Last Filed: 09/15/20 13:45> Status: Chronic <Zeke Tovar BLADDER TRIMMER-C - Last Filed: 09/15/20 13:45> Assessment and Plan: Continue Accu-Cheks sliding scale and hypoglycemic protocol Will adjust medication as needed Continue diabetic diet Continue Lantus 15 units at bedtime, glipizide, and Entresto 09/15/2020 no changes this time <Zeke Tovar BLADDER TRIMMER-C - Last Filed: 09/15/20 13:45> (4) Acute respiratory failure with hypoxia: Code(s): J96.01 - Acute respiratory failure with hypoxia <Zeke Tovar BLADDER TRIMMER-C - Last Filed: 09/15/20 13:45> Status: Resolved <Zeke TovarDEEP-C - Last Filed: 09/15/20 13:45> Assessment and Plan: Resolved Secondary to Covid 09/15/2020 patient has no complaints of respiratory issues <Zeke Tovar BLADDER TRIMMER-C - Last Filed: 09/15/20 13:45> (5) COVID-19: Code(s): U07.1 - COVID-19 <Zeke Tovar BLADDER TRIMMER-C - Last Filed: 09/15/20 13:45> Status: Acute <Zeke Tovar BLADDER TRIMMER-C - Last Filed: 09/15/20 13:45> Assessment and Plan: Patient tested positive at an outside facility Completed remdesivir in dexamethasone <Zeke Tovar BLADDER TRIMMER-C - Last Filed: 09/15/20 13:45> (6) Transaminitis: Code(s): R74.01 - Elevation of levels of liver transaminase levels <Zeke Tovar BLADDER TRIMMER-C - Last Filed: 09/15/20 13:45> Status: Acute <Zeke Tovar BLADDER TRIMMER-C - Last Filed: 09/15/20 13:45> Assessment and Plan: 09/15/2020 AST/ALT 30 <Zeke Tovar, BLADDER TRIMMER-C - Last Filed: 09/15/20 13:45> (7) CHF (congestive heart failure): Code(s): I50.9 - Heart failure, unspecified <Zeke Tovar BLADDER TRIMMER-C - Last Filed: 09/15/20 13:45> Status: Acute <eZke Tovar BLADDER TRIMMER-C - Last Filed: 09/15/20 13:45> Assessment and Plan: Will check a BMP in a.m. Does not appear to be in fluid overload Continue Lasix 40 mg daily and metoprolol 09/15/2020 no peripheral edema lungs are clear <Zeke Tovar BLADDER TRIMMER-C - Last Filed: 09/15/20 13:45> (8) Insomnia: Code(s): G47.00 - Insomnia, unspecified <Zeke Tovar, BLADDER TRIMMER-C - Last Filed: 09/15/20 13:45> Status: Acute <Zeke Tovar BLADDER TRIMMER-C - Last Filed: 09/15/20 13:45> Assessment and Plan: Continue quetiapine <MIGUEL Mendez - Last Filed: 09/15/20 13:45> (9) HLD (hyperlipidemia): Code(s): E78.5 - Hyperlipidemia, unspecified <MIGUEL Mendez - Last Filed: 09/15/20 13:45> Status: Acute <MIGUEL Mendez - Last Filed: 09/15/20 13:45> Assessment and Plan: Continue statins <MIGUEL Mendez - Last Filed: 09/15/20 13:45> Review of Systems Constitutional: Constitutional: Reports no additiona
[2020-09-15 15:18] LABS: Glucose Point of Care 240 (65-105)
[2020-09-15 15:18] LABS: Glucose Point of Care 264 (65-105)
[2020-09-15 15:18] LABS: Glucose Point of Care 139 (65-105)
[2020-09-15 15:18] LABS: Glucose Point of Care 261 (65-105)
[2020-09-15 15:18] LABS: Glucose Point of Care 152 (65-105)
[2020-09-15 16:00] VITALS: BP 123/67; PULSE 90; RESP 16; TEMP 36.4; O2SAT 96
[2020-09-15 17:56] LABS: Glucose Point of Care 227 (65-105)
[2020-09-15 20:37] VITALS: PULSE 90
[2020-09-15] MEDS: SIMVASTATIN 10 MG TABLET 40 MG PO (20:37)
[2020-09-15] MEDS: QUEtiapine FUMARATE 25 MG TABLET PO (20:41)
[2020-09-15] MEDS: INSULIN GLARGINE (*BKC) 100 UNITS/ML 15 UNITS SUB-Q (21:05)
[2020-09-15 21:11] LABS: Glucose Point of Care 264 (65-105)
[2020-09-16] VITALS: BP 99/59; PULSE 91; RESP 16; TEMP 36.2; O2SAT 95
[2020-09-16 06:01] LABS: Hematocrit 34.5 % (35.0-42.0); Hemoglobin 10.7 g/dL (11.7-13.8); Mean Corpuscular Hemoglobin 30.1 pg (27.0-31.0); Mean Corpuscular Volume 97.2 fL (78.0-102.0); Mean Platelet Volume 10.7 fl (9.2-11.8); Platelet Count Result 274 K/mm3 (150-420); Red Blood Count 3.55 M/mm3 (4.20-5.40); Red Cell Distribution Width 13.2 % (11.6-14.4); White Blood Count 5.5 K/mm3 (4.8-10.8)
[2020-09-16 06:15] LABS: Anion Gap 9 mmol/L (8-16); Blood Urea Nitrogen 23 mg/dL (7-18); Calcium 9.2 mg/dL (8.5-10.1); Carbon Dioxide 27 mmol/L (21-32); Chloride 104 mmol/L (98-108); Estimated CRCL calculation 32 ml/min; Estimated Glomerular Filt Rate 44; Glucose 140 mg/dL (70-99); Osmolality Calculated 295 mOsm/kg (285-295); Potassium 4.1 mmol/L (3.5-5.1); Sodium 140 mmol/L (136-145)
[2020-09-16 08:00] VITALS: BP 106/53; PULSE 92; RESP 16; TEMP 36.5; O2SAT 99
[2020-09-16] MEDS: SACUBITRIL/VALSARTAN 49-51 MG TABLET 1 TABLET PO (08:52)
[2020-09-16 08:53] VITALS: PULSE 92
[2020-09-16] MEDS: FUROSEMIDE 40 MG TABLET PO (08:53)
[2020-09-16] MEDS: NIFEdipine 30 MG TAB.ER.24 PO (08:53)
[2020-09-16] MEDS: ASPIRIN 81 MG ENTERIC TABLET PO (08:53)
[2020-09-16] MEDS: POTASSIUM CHLORIDE 10 MEQ TABLET PO (08:53)
[2020-09-16] MEDS: DOCUSATE SODIUM 100 MG CAPSULE PO (08:53)
[2020-09-16] MEDS: guaiFENesin 12 HR 600 MG TABCR PO (08:53)
[2020-09-16] MEDS: METOPROLOL TARTRATE 25 MG TABLET PO (08:53)
[2020-09-16] MEDS: GLIMEPIRIDE 2 MG TABLET 4 MG PO (08:55)
[2020-09-16 12:23] LABS: Glucose Point of Care 251 (65-105)
--- NOTE | 2020-09-16 12:36 | PM.DS ---
DS: Admitting Diagnosis Admitting Diagnosis Admitting Diagnosis: Rehabilitation DS: Discharge Diagnosis Discharge Diagnosis (1) Generalized weakness: Code(s): R53.1 - Weakness Status: Acute Assessment and Plan: ? Exhibit tolerance during physical activity as evidenced by a normal fluctuation of vital signs during physical activity. ? Patient will be ability to perform required activities of daily living. ? Provide appropriate nutrition for healing and strength. ? Use appropriate to prevent falls. ? Continue physical therapy/occupational therapy. (2) Hypertension: Code(s): I10 - Essential (primary) hypertension Status: Chronic Assessment and Plan: Blood pressure stable Continue metoprolol, Procardia decreased to 10 mg twice daily instead of 30,entresto (3) Type 2 diabetes mellitus: Code(s): E11.9 - Type 2 diabetes mellitus without complications Status: Chronic Assessment and Plan: Blood sugar 140 Continue Accu-Cheks sliding scale and hypoglycemic protocol Continue diabetic diet A1c 8.5 Continue Lantus 15 units at bedtimem glipizide andentresto (4) Acute respiratory failure with hypoxia: Code(s): J96.01 - Acute respiratory failure with hypoxia Status: Resolved Assessment and Plan: Resolved Secondary to Covid (5) COVID-19: Code(s): U07.1 - COVID-19 Status: Acute Assessment and Plan: Patient tested positive at an outside facility Completed remdesivir in dexamethasone (6) Transaminitis: Code(s): R74.01 - Elevation of levels of liver transaminase levels Status: Acute Assessment and Plan: Patient's liver enzymes elevated at [place] possibly due to viral illness Will recheck in the a.m. (7) CHF (congestive heart failure): Code(s): I50.9 - Heart failure, unspecified Status: Acute Assessment and Plan: Compensated Does not appear to be in fluid overload Continue Lasix 40 mg daily and metoprolol (8) Insomnia: Code(s): G47.00 - Insomnia, unspecified Status: Acute Assessment and Plan: Continue quetiapine (9) HLD (hyperlipidemia): Code(s): E78.5 - Hyperlipidemia, unspecified Status: Acute Assessment and Plan: Continue statins DS: Summary Hospital Course Reason for hospitalization: Rehabilitation Hospital Course: Kylah is a 79-year-old white female that was admitted into our swing bed post Covid for deconditioned. Patient was medically stable this day of admission. Patient is minimum assist x1 with ambulation patient was able to complete SLR x15, seated marching x20 bilateral, LAQ x20 bilateral. The patient denies SOB, CP, palpitation, extremity numbness, lightheadedness, dizziness, constipation, diarrhea, chills, or fever. Time Spent with Patient Time attestation: Total time spent providing and/or coordinating discharge services: Exam Narrative: Exam Narrative: GENERAL: Frail elderly woman in no apparent distress. HEAD: normocephalic, atraumatic. EYES: PERRL. Sclera clear/white. Vision is grossly intact. EARS: External ears normal, auditory canals clear and without drainage, TMs normal without perforation. Hearing grossly intact. NOSE: External nose normal with no obvious nasal discharge, nares without redness, no rhinorrhea. THROAT: Mucous membranes moist, posterior pharynx clear. NECK: Neck supple, non-tender without lymphadenopathy, masses or thyromegaly. CARDIOVASCULAR: Regular rate and rhythm without murmurs, gallops, or rubs. RESPIRATORY: Clear to auscultation. Breath sounds equal bilaterally. No wheezes, rales, or rhonchi. GASTROINTESTINAL: Abdomen soft, non-tender, nondistended. Bowel sounds are active. No hepato-splenomegaly, or palpable masses. No guarding. SKIN: warm, intact with no suspicious lesions or rash, good texture and turgor. NEURO: awake, alert, and oriented to person, place and time. There were no obvious foca
[2020-09-16] MEDS: ONDANSETRON HCL ODT 4 MG TABLET PO (14:49)
--- NOTE | 2020-09-29 15:28 | PC.NURSE ---
skilled nursing states they had no issues or problems with the discharge instructions.
== END 2020-09-16 14:50 | DRG 179 ==
PROVIDERS: Nurse Practitioner; Nurse Practitioner Family; Admitting Provider Emergency Medicine; PCP Internal Medicine; Visit Provider Emergency Medicine
DX: U07.1 COVID-19 (principal); I11.0 Hypertensive heart disease with heart failure; I50.9 Heart failure, unspecified; R53.1 Weakness; E11.9 Type 2 diabetes mellitus without complications; E78.5 Hyperlipidemia, unspecified; G47.00 Insomnia, unspecified
CPT/HCPCS: 36415; 80048; 80053; 85027; 97110; 97161; 97166; 97530; 97535; A9270; J1815

== ENCOUNTER 2021-01-04 15:14 | Observation (INO) | payer MEDICARE, SELFPAY ==
[2021-01-04] VITALS (21 sets, daily range): BP systolic 124–169; BP diastolic 64–89; PULSE 82–101; RESP 12–22; TEMP 36.1–36.6; O2SAT 82–100; BMI 29.6
--- NOTE | ~2021-01-04 | CT_ITS ---
EXAMINATION: CTA brain carotid EXAM DATE: 01/04/2021 19:08 INDICATION: Dizziness. TECHNIQUE: Noncontrast head CT. Spiral CTA of the carotid arteries was performed with intravenous i njection 100 cc of Omnipaque 350. Axial, coronal, sagittal reformatted images reviewed. Additional r eformatted images created on dedicated 3-D workstation. NASCET comparable standard used to assess th e degree of arterial stenosis. Spiral CT angiogram cerebral arteries performed with the same intrave nous injection of contrast. Source images of the brain CTA transferred to dedicated workstation for 3 -D rotational image creation. Coronal, sagittal maximum intensity pixel images also reviewed. The d ose-length product (DLP) for this examination was 1789.60 mGy-cm. The exposure was tailored accordi ng to patient size, and iterative reconstruction (ASIR) was used as additional dose reduction techniq ue. Correlation is made to head CT 09/04/2020. FINDINGS: Mild bilateral common carotid arteriosclerosis without stenosis. Mild bilateral carotid bul b arterial sclerosis without stenosis. The vertebral arteries are codominant. Mild to moderate bilate ral carotid siphon arterial sclerosis without stenosis. There is short segment moderate to severe chinedu nosis left M1 segment, and short segment mild stenosis of the right M1 segment (finding indicated on axial sequence 6 image 120). Short segment moderate to severe stenosis right P2 segment and moderate stenosis of the left P2 segment indicated on image 108. There are other scattered small regions of at herosclerosis in cerebral arteries more distally best seen on the coronal MIP sequence 606. There is no carotid or vertebral basilar arterial dissection or fibromuscular dysplasia. There are no cerebral artery aneurysms. There is symmetric cerebral artery arborization. The sagittal, transverse and sigm oid sinuses enhance normally, no venous sinus thrombosis. Internal cerebral veins also enhance normal ly. There is old left basal ganglia lacunar infarction. There is no acute intraparenchymal hemorrhage. N o evidence of intraparenchymal brain mass lesion. No evidence of acute infarction. There is mild to moderate periventricular and subcortical hypodensity, nonspecific but probably related to small vesse l ischemic disease. There is mild to moderate prominence of the sulci and ventricles related to cer ebral atrophy. There is intracranial carotid arteriosclerosis. There is no mass effect or midline shift. There is no obstructive hydrocephalus suspected. There are no extra-axial collections. Ther e are no calvarial acute fractures. Bilateral cataract surgery. IMPRESSION: 1. No acute carotid or intracranial findings. 2. Old left basal ganglia lacunar infarction. 3. Scattered cerebral artery atherosclerosis with short segment moderate to severe stenosis left M1 and right P2 segments. 4. Mild extracranial arterial sclerosis with 0% carotid bulb stenosis bilaterally. There is 1st of a ll 2 TTN. Reviewed, dictated and finalized at location A. IMPRESSION: 1. No acute carotid or intracranial findings. 2. Old left basal ganglia lacunar infarction. 3. Scattered cerebral artery atherosclerosis with short segment moderate to se bari stenosis left M1 and right P2 segments. 4. Mild extracranial arterial sclerosis with 0% carotid bulb stenosis bilkima lly. There is 1st of all 2 TTN.
--- NOTE | ~2021-01-04 | XR_ITS ---
XR chest 1V portable DATE: 01/04/2021 19:23 INDICATION: Dizziness. Covid-positive diagnosis of August 2020. Pneumonia. Congestive heart failure . History of hypertension. TECHNIQUE: Portable AP chest on 01/04/2021 at 1924 hours COMPARISON: 09/04/2020 portable AP chest FINDINGS: Cardiac megaly. There is pulmonary vascular congestion. There are patchy bilateral infiltrates involving particularly the right mid and both lower lung zones . There is chronic mild elevation of the right leaf of diaphragm. Aortic calcification and unfolding. Diffuse osteopenia. IMPRESSION: Congestive changes including increased bilateral infiltrates; the infiltrates may be seco ndary to pulmonary edema and/or pneumonia Reviewed, dictated and finalized at location A. IMPRESSION: Congestive changes including increased bilateral infiltrates; the i nfiltrates may be secondary to pulmonary edema and/or pneumonia
--- NOTE | ~2021-01-04 | US_ITS ---
EXAMINATION: US venous doppler [facility] DATE: 01/05/2021 13:46 INDICATION: Lower limb edema. TECHNIQUE: Grayscale ultrasound images without and with compression and Doppler ultrasound images of the bilateral lower extremity veins were obtained. COMPARISON: None. FINDINGS: The visualized portions of right common femoral vein, profunda (deep) femoral vein, femoral vein, pop liteal vein, peroneal veins, posterior tibial veins, and greater saphenous vein outflow are patent. The visualized portions of left common femoral vein, profunda femoral vein, femoral vein, popliteal v ein, peroneal veins, posterior tibial veins, and greater saphenous vein outflow are patent. IMPRESSION: 1. No deep venous thrombosis. Reviewed, dictated and finalized at location A.
--- NOTE | 2021-01-04 15:26 | ECG_ITS ---
Measurements Intervals [place] Rate: 96 P: 43 WI: 186 QRS: -23 QRSD: 100 T: 18 QT: 329 QTc: 417 Interpretive Statements SINUS RHYTHM FREQUENT VENTRICULAR PREMATURE COMPLEXES INCOMPLETE RIGHT BUNDLE BRANCH BLOCK LOW QRS VOLTAGE IN PRECORDIAL LEADS ANTERIOR INFARCT, AGE INDETERMINATE CONSIDER INFERIOR INFARCT, AGE INDETERMINATE BORDERLINE ST-T WAVE ABNORMALITY- HIGH LATERAL LEADS BASELINE ARTIFACT- I, II, AVR, AVL, V5 ABNORMAL ECG Electronically Signed On 01-04-2021 15:45:33 CDT by Dennis Cassidy D.O.
[2021-01-04 15:58] LABS: Basophils Absolute Auto 0.1 K/mm3 (0.0-0.1); Basophils Percent Auto 0.9 % (0.2-1.2); Eosinophils Absolute Auto 0.2 K/mm3 (0-0.3); Eosinophils Percent Auto 2.7 % (0-4.4); Hematocrit 40.6 % (37.0-47.0); Hemoglobin 12.8 g/dL (12.0-15.0); Immature Granulocyte Absolute 0.02 K/mm3 (0.00-0.031); Immature Granulocyte Percent A 0.3 % (0-0.5); Lymphocytes Absolute Auto 3.26 K/mm3 (0.9-3.2); Lymphocytes Percent Auto 49.3 % (18.3-44.2); Mean Corpuscular HGB Conc 31.5 g/dl (32-36); Mean Corpuscular Hemoglobin 27.1 pg (26-34); Mean Corpuscular Volume 85.8 fl (80-100); Mean Platelet Volume 10.2 fl (7.4-10.4); Monocytes Absolute Auto 0.7 K/mm3 (0.1-0.6); Monocytes Percent Auto 10.9 % (2.6-8.5); Neutrophils Absolute Auto 2.4 K/mm3 (1.3-6.7); Neutrophils Percent Auto 35.9 % (45.5-73.1); Platelet Count Result 306 k/mm3 (150-375); Red Blood Count 4.73 M/mm3 (4.2-5.4); Red Cell Distribution Width 14.8 % (11.5-14.5); White Blood Count 6.6 K/mm3 (4.5-10.0)
[2021-01-04 16:25] LABS: Anion Gap 6 mmol/L (8-16); Carbon Dioxide 35 mmol/L (22-30); Chloride 101 mmol/L (98-107); Potassium 2.8 mmol/L (3.4-5.0); Sodium 142 mmol/L (137-145)
[2021-01-04 16:26] LABS: Blood Urea Nitrogen 12 mg/dL (7-17); Calcium 8.6 mg/dL (8.4-10.2); Estimated CRCL calculation 47 ml/min; Estimated Glomerular Filt Rate 60; Glucose 175 mg/dL (65-105)
--- NOTE | 2021-01-04 18:31 | ED.GENADULT ---
HPI - General Adult General Chief complaint: Dizziness Stated complaint: Dizziness, Bilateral Foot Edema Time Seen by Provider: 01/04/21 18:06 Source: patient History of Present Illness HPI narrative: Patient is a 80 y/o female complaining of severe dizziness since approximately 12:00 AM midnight. She describes her dizziness as feeling going out. However, she denies passing out. There is no alleviating or exacerbating factor. She also has chronic leg swelling. Related Data Home Medications Medication Instructions Recorded Confirmed Entresto 1 tablet PO BID 09/04/20 09/09/20 Lantus Solostar U-100 Insulin 15 unit SUBCUT HS 09/04/20 09/09/20 furosemide 40 mg PO DAILY 09/04/20 09/09/20 glimepiride 4 mg PO BID 09/04/20 09/09/20 metoprolol tartrate 25 mg PO BID 09/04/20 09/09/20 potassium chloride 10 meq PO BID 09/04/20 09/09/20 quetiapine 25 mg PO HS 09/04/20 09/09/20 simvastatin [Zocor] 40 mg PO HS 09/04/20 09/09/20 Allergies Allergy/AdvReac Type Severity Reaction Status Date / Time No Known Allergies Allergy Verified 01/04/21 21:01 Review of Systems Constitutional: Constitutional: Denies chills, Denies fever(s), Denies headache(s) and Denies weakness Eyes: Eyes: Denies blurry vision ENT: Denies headache(s) and Denies neck pain Cardiovascular: Cardiovascular: Denies chest pain, Reports leg edema and Denies dyspnea Respiratory: Respiratory: Denies cough and Denies dyspnea Gastrointestinal: Gastrointestinal: Denies abdominal pain, Denies diarrhea, Denies nausea and Denies vomiting Genitourinary: Genitourinary: Denies hematuria and Denies dysuria Musculoskeletal: Musculoskeletal: Denies back pain and Denies neck pain Neurologic: Reports dizziness, Denies headache(s) and Denies weakness PMFSH Past Medical History Medical History History of CHF (congestive heart failure) History of diabetes mellitus History of hyperlipidemia Hypertension Surgical History Surgical History History of heart artery stent Family History Family History Mother Congestive heart failure Father Congestive heart failure Sibling Congestive heart failure Emphysema lung Breast cancer Social History Social History Social History: Patient has never smoked. She does not drink alcohol or do drugs. She would like to be a full code. If she is unable to make decisions for herself she would like her son, Franco, to make these decisions. Smoking status: Never smoker Alcohol intake: never Substance use: never Substance use type: does not use Gender identity (if verbalized by the patient): Female Spiritual care concerns: No Exam Const: General: no acute distress and well developed Orientation/consciousness: oriented to person, oriented to place, oriented to time and patient oriented x3 HENMT: Head: normocephalic Ears: external ears normal General nose exam: Normal external nose present Eyes: General: appearance normal, both eyes and all related structures Conjunctivae: conjunctivae normal Neck: Neck: normal visual inspection and full ROM Chest: Chest palpation & inspection: normal inspection of the chest and no tenderness Resp: Effort & Inspection: normal respiratory effort Auscultation: clear to auscultation bilaterally Cardio: Rate: regular rate Rhythm: regular rhythm GI: GI Palp: No abdominal tenderness and Yes Soft to palpation Skin: General skin exam: normal color and turgor normal Neuro: General: oriented to person, oriented to place, oriented to time and patient oriented x3 Cognition (Neuro): normal cognition Extrem: General: normal to inspection, full ROM and edema bilateral Psych: Appearance: grossly normal Mental Status: mental status grossly normal Affect: normal affect Course
[2021-01-04] MEDS: POTASSIUM CHLORIDE 20 MEQ TABLET 40 MEQ PO (19:09)
[2021-01-04 19:50] LABS: NT Pro B Type Natriuretic Pept 4220 PG/ML (5-100)
[2021-01-04] MEDS: FUROSEMIDE INJ 40 MG/4 ML VIAL IV PUSH (21:10)
[2021-01-04 21:14] LABS: Troponin I 0.292 ng/mL (0.000-0.034)
--- NOTE | 2021-01-04 22:15 | PC.NURSE ---
attempted to call pt's daughter at provided phone number . first call went to National Suicide Prevention Hotline, 2nd call no answer. report to AILYN SanzU. pt to go to room 202 on tele.
--- NOTE | 2021-01-04 22:27 | PC.NURSE ---
pt taken to room 202 on stretcher by hvac refrigeration technician x 2; O2, police or patrol park officer.
--- NOTE | 2021-01-04 22:44 | ADMGEN ---
This patient, Kylah Peña, was admitted to IMU Room 202-. Patient/family oriented to hospital policies and general routines including ID bracelet, bed and alarms, visiting hours, pain management, procedures, bathroom and other care routines, personal items, smoking policy, room service/diet, and visiting hours. Information on how to activate the Rapid Response Team has been discussed. Patient/Family are encouraged to report perceived risks to care and to ask questions if they do not understand what they are told or what they should do.
[2021-01-05] VITALS (19 sets, daily range): BP systolic 133–153; BP diastolic 61–94; PULSE 76–110; RESP 18; TEMP 36.1–36.6; O2SAT 94–98
[2021-01-05] LABS: Glucose Point of Care 88 (65-105)
--- NOTE | 2021-01-05 | ECHO_ITS ---
Patient Info Name: Kylah Peña Age: 80 years : 1940 Gender: Female Ht: 62 in Wt: 162 lbs BSA: 1.82 m2 HR: 100 bpm BP: 153 / 79 mmHg Heart Rhythm: Indeterminant Technical Quality: Good Exam Date: 01/05/2021 7:56 AM Exam Location: [facility] Patient Status: Inpatient Admit Date: 01/04/2021 Staff Ordering Physician: Lena Cheema NP Lube Worker: Adia Vigil RDCS Attending Provider: Marino Becerra MD Referring Physician: Anette MARX; Exam Type: CA echo doppler color flow Study Info Indications I50.9 - Heart failure, unspecified Complete two-dimensional, color flow and Doppler transthoracic echocardiogram is performed. Summary 1. Complete two-dimensional, color flow and Doppler transthoracic echocardiogram is performed. 2. Normal left ventricular size with mild concentric left ventricular hypertrophy. Moderate global hypokinesis. The measured ejection fraction was 53% but visually it appears to be in the 40-45% range. Diastolic dysfunction is present. Global longitudinal strain was-9%, severely decreased, consistent with systolic dysfunction. 3. There is mild to moderate mitral valve regurgitation. 4. There is mild mitral valve stenosis. Mitral valve area by planimetry was 2.7 cm2. 5. Mild pulmonary hypertension, estimated pulmonary arterial systolic pressure is 48 mmHg. 6. Rhythm indeterminate. Left Ventricle Left ventricular chamber dimension is normal. Left ventricular systolic function is moderately reduced, estimated at 40-45%. There is mildly increased left ventricular wall thickness. Left ventricular septal wall motion is normal. The left ventricular diastolic function is abnormal. Global longitudinal strain is severely elevated at -9 %. Right Ventricle Right ventricular chamber dimension is normal. Right ventricular systolic function is normal. Left Atria Left atrial chamber dimension is normal. Right Atria Right atrial chamber dimension is normal. Aortic Valve The aortic valve is trileaflet. There is moderate aortic valve sclerosis. There is no aortic valve stenosis. There is trace aortic valve regurgitation. Pulmonic Valve The pulmonic valve is normal. There is no pulmonic valve stenosis. There is trace pulmonic regurgitation. Mitral Valve The mitral valve has thickened leaflets and calcified annulus. There is mild mitral valve stenosis. Mitral valve area by planimetry was 2.7 cm2. There is mild to moderate mitral valve regurgitation. Tricuspid Valve The tricuspid valve leaflets are normal. There is no significant tricuspid valve stenosis. There is trace tricuspid valve regurgitation. Mild pulmonary hypertension, estimated pulmonary arterial systolic pressure is 48 mmHg. Pericardium/Pleural The pericardium appears normal. There is no pericardial effusion. Inferior Vena Cava Normal inferior vena cava with >50% collapse upon inspiration consistent with Empty right atrial pressure, 10 mmHg. Aorta The aortic root size at the sinus of Valsalva is normal. The prox ascending aorta size is normal. Left Ventricular Outflow Tract Name Value Normal LVOT 2D LVOT Diameter 2.0 cm LVOT Doppler
[2021-01-05 00:29] LABS: Troponin I 0.288 ng/mL (0.000-0.034)
--- NOTE | 2021-01-05 01:44 | PM.IMHP ---
H&P: HPI History of Present Illness Date/Time: 01/05/21 01:44 this is a 80-year-old female patient who has a past medical history of congestive heart failure. Today and she just felt like she was dizzy. She felt like she was going to pass out. She lives with her family. She felt very weak. She has increased edema to her lower extremities. The patient has been on Lasix but has not been on any potassium. She has chronic leg swelling. No recent echo seen. 2.8 she was supplemented the emergency room. Glucose 175. Her 1st troponin Was 0.92 and the 2nd troponin was 0.288. Her BNP is 4220. The patient has not been complaining of any chest pain. Potassium Supplement and Lasix in the emergency room. The patient is being admitted to observation on the date of service of 01/05/2021. Chief Complaint: Dizziness and weakness Review of Systems Review of Systems: All systems reviewed & are unremarkable except as noted in HPI and below Constitutional: Constitutional: Reports as per HPI and Reports no additional constitutional complaints Eyes: Eyes: Reports as per HPI and Reports no additional eye complaints ENT: Reports system reviewed and no additional complaints, except as documented and Reports Normal hearing present Cardiovascular: Cardiovascular: Reports no additional cardiovascular complaints Respiratory: Respiratory: Reports no additional respiratory complaints and Reports no additional respiratory complaints Gastrointestinal: Gastrointestinal: Reports as per HPI and Reports no additional gastrointestinal complaints Musculoskeletal: Musculoskeletal: Reports no additional musculoskeletal complaints Integumentary/Breasts: Skin/Breast: Reports system reviewed and no additional complaints, except as docu and Reports as per HPI Neurologic: Reports system reviewed and no additional complaints, except as documented, Reports as per HPI and Reports Normal hearing present Psychiatric: Psychiatric: Reports no additional psychiatric complaints and Reports as per HPI Endocrine: Endocrine: Reports no additional endocrine complaints Hematologic/Lymphatic: Hematologic/Lymphatic: Reports no additional hematologic/lymphatic complaints Allergic/Immunologic: Allergic/Immunologic: Reports no additional allergic/immunologic complaints [facility] Past Medical History Medical History (Updated 01/05/21 @ 01:50 by Lena Cheema NP) History of CHF (congestive heart failure) History of diabetes mellitus History of hyperlipidemia Hypertension Surgical History Surgical History (Updated 01/05/21 @ 01:50 by Lena Cheema NP) History of cataract extraction History of heart artery stent Family History Family History Mother Congestive heart failure Father Congestive heart failure Sibling Congestive heart failure Emphysema lung Breast cancer Social History Social History (Updated 01/05/21 @ 01:51 by Lena Cheema NP) Social History: Patient has never smoked. She does not drink alcohol or do drugs. She would like to be a full code. If she is unable to make decisions for herself she would like her son, Franco, to make these decisions. The patient retired as a nurse's aide. The patient had 6 children. She is . Her son and daughter and sister all live with her. Her sister is 90 years old and recently broke her hip Smoking status: Never smoker Alcohol intake: never Substance use: never Substance use type: does not use Gender identity (if verbalized by the patient): Female Spiritual care concerns: Yes (pentacostal) Meds Home Medications and Allergies Home Medications Medication Instructions Recorded Confirmed Type Entresto 1 tablet PO BID 09/04/20 01/04/21 History Lantus Solostar U-100 Insulin 15 unit SUBCUT HS 09/04/20 01/04/21 History furosemide 40 mg PO DAILY 09/04/20 01/04/21 History glimepiride 4 mg PO BID 09/04/20 01/04/21 History meto
[2021-01-05 02:51] LABS: Basophils Absolute Auto 0.1 K/mm3 (0.0-0.1); Basophils Percent Auto 0.6 % (0.2-1.2); Eosinophils Absolute Auto 0.2 K/mm3 (0-0.3); Eosinophils Percent Auto 1.9 % (0-4.4); Hematocrit 40.4 % (37.0-47.0); Hemoglobin 12.8 g/dL (12.0-15.0); Immature Granulocyte Absolute 0.03 K/mm3 (0.00-0.031); Immature Granulocyte Percent A 0.3 % (0-0.5); Lymphocytes Absolute Auto 3.12 K/mm3 (0.9-3.2); Lymphocytes Percent Auto 31.9 % (18.3-44.2); Mean Corpuscular HGB Conc 31.7 g/dl (32-36); Mean Corpuscular Hemoglobin 27.4 pg (26-34); Mean Corpuscular Volume 86.3 fl (80-100); Mean Platelet Volume 10.2 fl (7.4-10.4); Monocytes Percent Auto 10.3 % (2.6-8.5); Neutrophils Absolute Auto 5.4 K/mm3 (1.3-6.7); Platelet Count Result 315 k/mm3 (150-375); Red Blood Count 4.68 M/mm3 (4.2-5.4); White Blood Count 9.8 K/mm3 (4.5-10.0)
[2021-01-05 03:19] LABS: Alanine Aminotransferase 12 U/L (4-35); Albumin Level 3.7 g/dL (3.5-5.1); Alkaline Phosphatase 98 U/L (38-126); Aspartate Amino Transferase 28 U/L (14-36); Bilirubin,Total 0.5 mg/dL (0.2-1.3); Blood Urea Nitrogen 12 mg/dL (7-17); Calcium 8.4 mg/dL (8.4-10.2); Carbon Dioxide > 40 mmol/L (22-30); Chloride 99 mmol/L (98-107); Estimated CRCL calculation 37 ml/min; Estimated Glomerular Filt Rate 53; Glucose 251 mg/dL (65-105); Magnesium 1.4 mg/dL (1.6-2.3); Potassium 2.8 mmol/L (3.4-5.0); Sodium 143 mmol/L (137-145)
[2021-01-05] MEDS: POTASSIUM CHLORIDE 20 MEQ TABLET 40 MEQ PO ×2 (03:41→12:20)
[2021-01-05 03:44] LABS: Hemoglobin A1C 8.6 % (<5.7); Troponin I 0.286 ng/mL (0.000-0.034)
[2021-01-05 07:53] LABS: Glucose Point of Care 229 (65-105)
[2021-01-05] MEDS: INSULIN ASPART (*BKC) 100 UNITS/ML SUB-Q (07:54)
[2021-01-05] MEDS: MAGNESIUM SULF 2 GM/WATER 50ML 2 GM/50 ML BAG IVPB (07:56)
[2021-01-05] MEDS: POTASSIUM CHLORIDE 20 MEQ TABLET.ER PO (07:57)
[2021-01-05] MEDS: METOPROLOL TARTRATE 25 MG TABLET PO ×2 (07:57→20:33)
[2021-01-05] MEDS: GLIMEPIRIDE 2 MG TABLET 4 MG PO ×2 (07:57→18:12)
[2021-01-05] MEDS: FUROSEMIDE 40 MG TABLET PO (07:57)
[2021-01-05] MEDS: SACUBITRIL/VALSARTAN 49-51 MG TABLET 1 TABLET PO ×2 (07:58→18:12)
[2021-01-05 10:04] LABS: Magnesium 2.1 mg/dL (1.6-2.3); Potassium 3.1 mmol/L (3.4-5.0)
[2021-01-05 12:18] LABS: Glucose Point of Care 134 (65-105)
--- NOTE | 2021-01-05 12:56 | PM.IMPN ---
Progress Note: A&P Assessment and Plan (1) Dizziness: Code(s): R42 - Dizziness and giddiness Status: Acute Assessment and Plan: Patietn feeling dizziness and presyncopal. She feels better toay. CTA head/neck showing no acute findings. Old CVA noted so will add ASA. Contineu PT/OT. (2) Elevated troponin: Code(s): R77.8 - Other specified abnormalities of plasma proteins Status: Acute Assessment and Plan: Trop elevated at 0.292 but flat and trending down on repeat. EKG reviewed and showing borderline ST-T wave changes in the high lateral leads but looks similar to EKG from August. Echo ordered and is pending. Continue statin and Lopressor. Add ASA. (3) CHF (congestive heart failure): Qualifiers: Heart failure chronicity: acute on chronic Heart failure type: unspecified Qualified Code(s): I50.9 - Heart failure, unspecified Code(s): I50.9 - Heart failure, unspecified Status: Chronic Assessment and Plan: CXR showing congestive changes. Doubt PNA. Continue on her Lasix and oral potassium added. Continue Entresto and Lopressor. Asymmetric edema noed. Will check doppler. Echo pending. Doppler negative for DVT. (4) Hypokalemia: Code(s): E87.6 - Hypokalemia Status: Acute Assessment and Plan: Potassium 2.8 on admission. Probably related to her Lasix. Potassium still low. Continue to replace. Mag low as well and this was replaced today. (5) Hypertension: Code(s): I10 - Essential (primary) hypertension Status: Chronic Assessment and Plan: Patient's blood pressure was reviewed on 01/05 Blood pressure remains well controlled. Will continue current medications with metoprolol. She is also on Entresto for congestive heart failure. (6) Type 2 diabetes mellitus: Code(s): E11.9 - Type 2 diabetes mellitus without complications Status: Chronic Assessment and Plan: A1c 8.6. The patient's blood glucose was reviewed on 01/05 Glucose remains reasonably well controlled. Continue AccuCheks covering with sliding scale. Hypoglycemia protocol available as needed. Continue current medications with Amaryl and Lantus. (7) DVT prophylaxis: Code(s): Z29.9 - Encounter for prophylactic measures, unspecified Status: Acute Assessment and Plan: SCDs Subjective Date/time seen: 01/05/21 12:56 Interval history: 80yo female with CHF, DM and HTn here for dizziness. Assuming care. Chart reviewed. Patient states ?I feel better?. She denies dizziness. No chest pain or shortness of breath. No nausea or vomiting. She uses a walker and wheelchair at home. She does not check her glucose at home. Exam Narrative: Exam Narrative: AF 96.9 134/85 89 18 96% Gen - NARD Chest -few basilar inspiratory crackles otherwise clear. CV - RRR S1/S2; telemetry showing PVCs with occasional couplets and triplets. Abd - Soft, NT/ND, Positive BS Ext -left greater than right pedal edema. Negative Homans sign. Neuro -alert, pleasant and cooperative. Right-sided hemiparesis Psych - Nml mood and affect Skin - Warm and dry Objective Data Vital Signs Vital Signs: Vital Signs - 24 hr 01/04/21 15:43 01/04/21 17:56 01/04/21 19:01 Temperature 97.7 F Pulse Rate 101 H 97 93 Respiratory Rate 20 22 H 16 Blood Pressure 145/74 H 164/77 H 151/69 H Pulse Oximetry 96 94 82 L 01/04/21 19:12 01/04/21 19:15 01/04/21 19:16 Temperature Pulse Rate 97 89 89 Respiratory Rate 14 16 17 Blood Pressure 151/69 H 169/80 H Pulse Oximetry 93 100 98 01/04/21 19:30 01/04/21 19:32 01/04/21 19:45 Temperature Pulse Rate 89 90 Respiratory Rate 17 14 18 Blood Pressure 125/64 Pulse Oximetry 99 100 98 01/04/21 20:01 01/04/21 20:15 01/04/21 20:16 Temperature Pulse Rate 92 85 89 Respiratory Rate 16 15 19 Blood Pressure 124/77 129/85 Pulse Oximetry 99 100 100 01/04/21 20:22
[2021-01-05 17:22] LABS: Glucose Point of Care 139 (65-105)
[2021-01-05 20:00] LABS: Glucose Point of Care 192 (65-105)
[2021-01-05] MEDS: INSULIN GLARGINE (*BKC) 100 UNITS/ML 15 UNITS SUB-Q (20:32)
[2021-01-05] MEDS: SIMVASTATIN 20 MG TABLET 40 MG PO (20:33)
[2021-01-06] VITALS (13 sets, daily range): BP systolic 132–162; BP diastolic 63–88; PULSE 78–99; RESP 18–22; TEMP 35.7–36.4; O2SAT 90–99
[2021-01-06 04:58] LABS: Anion Gap 1 mmol/L (8-16); Blood Urea Nitrogen 11 mg/dL (7-17); Carbon Dioxide 38 mmol/L (22-30); Chloride 103 mmol/L (98-107); Estimated CRCL calculation 41 ml/min; Estimated Glomerular Filt Rate 60; Glucose 127 mg/dL (65-105); Phosphorus 2.8 mg/dL (2.5-4.5); Potassium 3.6 mmol/L (3.4-5.0); Sodium 142 mmol/L (137-145)
[2021-01-06 08:13] LABS: Glucose Point of Care 101 (65-105)
[2021-01-06] MEDS: METOPROLOL TARTRATE 25 MG TABLET PO (09:45)
[2021-01-06] MEDS: GLIMEPIRIDE 2 MG TABLET 4 MG PO ×2 (09:46→17:52)
[2021-01-06] MEDS: SACUBITRIL/VALSARTAN 49-51 MG TABLET 1 TABLET PO ×2 (09:46→17:52)
[2021-01-06] MEDS: ASPIRIN 81 MG CHEWABLE TABLET PO (09:47)
[2021-01-06] MEDS: FUROSEMIDE 40 MG TABLET PO (09:47)
[2021-01-06] MEDS: POTASSIUM CHLORIDE 20 MEQ TABLET.ER PO (09:47)
[2021-01-06 12:17] LABS: Glucose Point of Care 166 (65-105)
--- NOTE | 2021-01-06 14:49 | PM.DS ---
DS: Admitting Diagnosis Admitting Diagnosis Admitting Diagnosis: Dizzy and presyncopal DS: Discharge Diagnosis Discharge Diagnosis (1) Dizziness: Code(s): R42 - Dizziness and giddiness Status: Acute Assessment and Plan: Patietn feeling dizziness and presyncopal. CTA head/neck showing no acute findings but did show a left basal ganglia lacunar infarction and scattered cerebral artery atherosclerosis with short segment of moderate to severe left M1 and right P2 segments. We continued the Zocor and added ASA. She worked with PT/OT and did well. She has been up walking to the door. She feels much better and no further dizziness. She feels ready for discharge. (2) Elevated troponin: Code(s): R77.8 - Other specified abnormalities of plasma proteins Status: Acute Assessment and Plan: No complaints of chest pain. Trop elevated at 0.292 but flat and trending down on repeat. EKG reviewed and showing borderline ST-T wave changes in the high lateral leads but looks similar to EKG from August. Echo showing EF 40-45% with diastolic dysfunction and moderate MR but no wall motion abnormality. We continued statin and Lopressor. We added ASA. Will have her follow up with her Industrial Maintenance Tech after discharge. (3) CHF (congestive heart failure): Qualifiers: Heart failure chronicity: acute on chronic Heart failure type: combined systolic and diastolic Qualified Code(s): I50.43 - Acute on chronic combined systolic (congestive) and diastolic (congestive) heart failure Code(s): I50.9 - Heart failure, unspecified Status: Chronic Assessment and Plan: CXR showing congestive changes. Doubt PNA. She received Lasix IV once in ED. Echo showing EF 40-45% with diastolic dysfunction and moderate MR. We continued her Lasix and oral potassium added. We continued her Entresto and Lopressor. Asymmetric edema noted but doppler negative for DVT. (4) Hypokalemia: Code(s): E87.6 - Hypokalemia Status: Acute Assessment and Plan: Potassium 2.8 on admission. Probably related to her Lasix. Potassium replaced. Mag was low as well and this was replaced. levels better. She was started on oral replacement. (5) Hypertension: Code(s): I10 - Essential (primary) hypertension Status: Chronic Assessment and Plan: Patient's blood pressure was monitored closely. Blood pressure remained well controlled. We continued with her current medications with metoprolol. She is also on Entresto for congestive heart failure which was continued as well. (6) Type 2 diabetes mellitus: Code(s): E11.9 - Type 2 diabetes mellitus without complications Status: Chronic Assessment and Plan: A1c 8.6. The patient's blood glucose was monitored closely. Glucose remained reasonably well controlled. We monitored with AccuCheks covering with sliding scale. Hypoglycemia protocol available as needed. We continued current medications with Amaryl and Lantus. DS: Summary Hospital Course Reason for hospitalization: 80yo female with CHF, DM and HTN here for dizziness. Please see H&P for details Hospital Course: Please see above for details of hospital course.. Status at Discharge Cognitive/behavioral status at discharge: Stable Time Spent with Patient Time attestation: Total time spent providing and/or coordinating discharge services: 38 minutes Time spent: Greater than 30 minutes Exam Narrative: Exam Narrative: AF 97.1 132/63 79 20 99% Gen - NARD Chest -clear to auscultation bilaterally CV - RRR S1/S2; telemetry showing PVCs with occasional couplets and triplets. Abd - Soft, NT/ND, Positive BS Ext -trace pedal edema. Neuro -alert, pleasant and cooperative. Psych - Nml mood and affect Skin - Warm and dry DS: Data Data Completed and Pending Labs on day of discharge: Labs from last 24 hours 01/06/21 01/06/21 01/06/21 11:42
[2021-01-06 17:40] LABS: Glucose Point of Care 156 (65-105)
--- NOTE | 2021-01-06 19:24 | PC.NURSE ---
Patient discharged with [facility] for transfer home. Patient alert and oriented x3. Discharge instructions gone over with patient. Packet sent home with patient for family to review. Pt lives with her daughter.
== END 2021-01-06 19:15 | disposition home health service (06) ==
LOC: ANHED 18:07 → ANH2MED 21:09 → ANHIMU 21:18
PROVIDERS: Emergency Medicine; Nurse Practitioner; Admitting Provider Internal Medicine; Emergency Provider Emergency Medicine; Visit Provider Internal Medicine
DX: R42 Dizziness and giddiness (principal); R77.8 Other specified abnormalities of plasma proteins; I11.0 Hypertensive heart disease with heart failure; I50.43 Acute on chronic combined systolic (congestive) and diastolic (congestive) heart failure; E11.9 Type 2 diabetes mellitus without complications; E87.6 Hypokalemia; E78.5 Hyperlipidemia, unspecified; R60.9 Edema, unspecified; Z79.4 Long term (current) use of insulin
CPT/HCPCS: 36415; 70496; 70498; 71045; 80048; 80053; 80069; 82948; 83036; 83735; 83880; 84132; 84484; 85025; 93005; 93306; 93970; 96365; 96366; 96367; 96375; 97110; 97116; 97161; 97165; 97535; 99285; A9270; G0378; J1815; J1940; J3475; J3480; J7060; Q9967

== ENCOUNTER 2022-03-03 14:51 | Outpatient (NON) | payer MEDICARE, SELFPAY ==
[2022-03-03 15:03] LABS: Hemoglobin 12.7 g/dL (11.7-13.8); Mean Corpuscular HGB Conc 31.8 g/dL (32.0-36.0); Mean Corpuscular Hemoglobin 30.5 pg (27.0-31.0); Mean Corpuscular Volume 96.2 fL (78.0-102.0); Mean Platelet Volume 10.2 fl (9.2-11.8); Platelet Count Result 296 K/mm3 (150-420); Red Blood Count 4.16 M/mm3 (4.20-5.40); Red Cell Distribution Width 12.6 % (11.6-14.4); White Blood Count 6.2 K/mm3 (4.8-10.8)
[2022-03-03 15:19] LABS: Alanine Aminotransferase 22 U/L (14-59); Albumin Level 3.5 g/dL (3.4-5.0); Alkaline Phosphatase 108 U/L (46-116); Anion Gap 8 mmol/L (8-16); Aspartate Amino Transferase 22 U/L (15-37); Bilirubin,Total 0.5 mg/dL (0.00-1.00); Blood Urea Nitrogen 19 mg/dL (7-18); Calcium 9.1 mg/dL (8.5-10.1); Carbon Dioxide 30 mmol/L (21-32); Chloride 106 mmol/L (98-108); Cholesterol 124 mg/dL (0-200); Estimated Glomerular Filt Rate 50; Glucose 174 mg/dL (70-99); HDL Direct 64 mg/dL (40-60); LDL Cholesterol Calculated 40 mg/dL (<130); Osmolality Calculated 304 mOsm/kg (285-295); Potassium 3.8 mmol/L (3.5-5.1); Sodium 144 mmol/L (136-145); Triglycerides 101 mg/dL (0-150)
[2022-03-03 15:26] LABS: Hemoglobin A1C 6.8 % (<5.7)
[2022-03-07 07:58] LABS: Hepatitis C Signal to Cutoff 0.01 ratio (<1.00); Hepatitis C Virus Antibody Nonreactive (Nonreactive)
[2022-03-08 19:31] LABS: Vitamin D 25 Hydroxy 24 ng/mL (30-100)
== END 2022-03-03 14:52 | disposition home or self-care (01) ==
LOC: CHSLAB 14:53
PROVIDERS: Visit Provider Nurse Practitioner Family
DX: R74.01 Elevation of levels of liver transaminase levels (principal); I10 Essential (primary) hypertension; E78.00 Pure hypercholesterolemia, unspecified; E11.59 Type 2 diabetes mellitus with other circulatory complications; I15.2 Hypertension secondary to endocrine disorders; I50.9 Heart failure, unspecified; R80.9 Proteinuria, unspecified; Z86.39 Personal history of other endocrine, nutritional and metabolic disease; Z79.899 Other long term (current) drug therapy
CPT/HCPCS: 80053; 80061; 82306; 83036; 83735; 85027; 86803